=== PATIENT | male | born 1975 | race Caucasian/White ===

== ENCOUNTER 2017-01-14 12:13 | Emergency (ER) | payer SELFPAY ==
[2017-01-14 12:28] VITALS: BP 149/98; PULSE 99; RESP 20; TEMP 97.5
--- NOTE | 2017-01-14 12:46 | ED ---
General Adult HPI - General Chief complaint: Seizure Stated complaint: Ora-Seizure Time Seen by Provider: 01/14/17 12:20 Source: patient, EMS, RN notes reviewed Mode of arrival: EMS Limitations: no limitations - History of Present Illness Initial comments: This is a 41-year-old male presents emergency Department with a past medical history significant for alcoholism and he continues to drink. Patient also states he doesn't take his medications as prescribed. Patient states she's not been feeling right lately and he thinks something wrong with his brain even though he recently had a CAT scan and MRI for seizures that he had back in October or August. Patient states he went he doesn't eat right or drink right and he also donates plasma whenever they let him but lately they haven't because his heart race been high. Patient states he was supposed to follow-up with neurology but never has. When I told the patient he needed to follow-up with neurology and he needs to stop drinking he got irate is to told me he didn' t want me preaching them and wanted to leave immediately at this point time he pulled his own IV out and decided to leave - Related Data Home Medications Medication Instructions Recorded Confirmed cloNIDine HCL [Catapres] 0.1 mg PO TID PRN 05/08/16 01/14/17 traZODone HCL [Desyrel] 100 mg PO HS 05/08/16 01/14/17 Escitalopram [Lexapro] 5 mg PO DAILY 10/20/16 01/14/17 Escitalopram [Lexapro] 20 mg PO DAILY 10/20/16 01/14/17 Folic Acid 1 mg PO DAILY 10/20/16 01/14/17 Ranitidine HCl [Zantac] 150 mg PO HS 10/20/16 01/14/17 Allergies Allergy/AdvReac Type Severity Reaction Status Date / Time No Known Allergies Allergy Verified 01/14/17 12:28 Review of Systems ROS Statement: Those systems with pertinent positive or pertinent negative responses have been documented in the HPI. ROS Other: All systems not noted in ROS Statement are negative. Past Medical History Past Medical History: Seizure Disorder Additional Past Medical History / Comment(s): clavicle fracture age 6 History of Any Multi-Drug Resistant Organisms: None Reported Past Surgical History: No Surgical Hx Reported Past Psychological History: Anxiety, Depression Smoking Status: Current every day smoker Past Alcohol Use History: Daily Past Drug Use History: Marijuana General Exam - General Exam Comments Initial Comments: GENERAL: Patient is well-developed and well-nourished. Patient is nontoxic and well- hydrated and is in no acute distress EYES: The sclera were anicteric and conjunctiva were pink and moist. SKIN: Skin is clear with no lesions or rashes and otherwise unremarkable. NEUROLOGIC: Patient is alert and oriented x3. PSYCHIATRIC: Patient's unreasonable and wants to dictate his care in the emergency department. Patient would not let me complete physical exam. Limitations: no limitations Course Vital Signs 01/14/17 12:26 Temperature 97.5 F L Pulse Rate 99 Respiratory 20 Rate Blood Pressure 149/98 O2 Sat by Pulse 92 L Oximetry Disposition Clinical Impression: Feeling abnormal, Alcoholism Disposition: Left Against Medical Advice Time of Disposition: 12:46
== END 2017-01-14 12:52 | disposition left against medical advice (07) ==
LOC: EC 12:13
DX: F10.20 Alcohol dependence, uncomplicated (principal); F41.9 Anxiety disorder, unspecified; F32.9 Major depressive disorder, single episode, unspecified; F17.200 Nicotine dependence, unspecified, uncomplicated; Z79.899 Other long term (current) drug therapy; Z53.21 Procedure and treatment not carried out due to patient leaving prior to being seen by health care provider
CPT/HCPCS: 99284

== ENCOUNTER 2017-02-22 10:44 | Emergency (ER) | payer OTHER ==
[2017-02-22] MEDS ORDERED: SODIUM CHLORIDE 0.9% 500 ML IV ONE (10:59)
--- NOTE | 2017-02-22 11:07 | ED ---
Seizure HPI - General Stated Complaint: Seizure Time Seen by Provider: 02/22/17 10:50 - History of Present Illness Initial Comments: 41-year-old male patient is brought in today from [facility] after having a seizure. Patient does have a history of seizures and gets to chronic alcohol abuse. Upon arrival patient was unsure of where he was somewhat confused, but did orient quickly. Patient's fiance is present and states that she did witness the seizure today. She states the patient had a series of 2-3 seizures lasting for a total of about 5 minutes, she describes general body shaking, eyes were rolled back in his head. She has witnessed his seizures in the past and states that this was very typical for him. Patient did not fall from the chair during the seizures. He denies any loss of bowel or bladder control during the seizure. He denies nausea, vomiting, headache, dizziness, weakness, dental pain, back pain, chest pain, shortness of breath, chest patient, diarrhea, dysuria, urinary urgency, or urinary frequency. Patient denies use of anti-seizure medications. 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 - Related Data Home Medications Medication Instructions Recorded Confirmed cloNIDine HCL [Catapres] 0.1 mg PO TID PRN 05/08/16 01/14/17 traZODone HCL [Desyrel] 100 mg PO HS 05/08/16 01/14/17 Escitalopram [Lexapro] 5 mg PO DAILY 10/20/16 01/14/17 Escitalopram [Lexapro] 20 mg PO DAILY 10/20/16 01/14/17 Folic Acid 1 mg PO DAILY 10/20/16 01/14/17 Ranitidine HCl [Zantac] 150 mg PO HS 10/20/16 01/14/17 Allergies Allergy/AdvReac Type Severity Reaction Status Date / Time No Known Allergies Allergy Verified 02/22/17 11:09 Review of Systems ROS Statement: Those systems with pertinent positive or pertinent negative responses have been documented in the HPI. ROS Other: All systems not noted in ROS Statement are negative. Past Medical History Past Medical History: Seizure Disorder Additional Past Medical History / Comment(s): clavicle fracture age 6 History of Any Multi-Drug Resistant Organisms: None Reported Past Surgical History: No Surgical Hx Reported Past Psychological History: Anxiety, Depression Smoking Status: Current every day smoker Past Alcohol Use History: Daily Past Drug Use History: Marijuana General Exam General appearance: alert, in no apparent distress Eye exam: Present: normal appearance, PERRL, EOMI. Absent: scleral icterus, conjunctival injection, periorbital swelling ENT exam: Present: normal exam, normal oropharynx, mucous membranes moist Neck exam: Present: normal inspection. Absent: tenderness, meningismus, lymphadenopathy Respiratory exam: Present: normal lung sounds bilaterally. Absent: respiratory distress, wheezes, rales, rhonchi, stridor Cardiovascular Exam: Present: regular rate, normal rhythm, normal heart sounds. Absent: systolic murmur, diastolic murmur, rubs, gallop, clicks GI/Abdominal exam: Present: soft, normal bowel sounds. Absent: distended, tenderness, guarding, rebound, rigid Extremities exam: Present: normal inspection, full ROM, normal capillary refill. Absent: tenderness, pedal edema, joint swelling, calf tenderness Back exam: Present: normal inspection Neurological exam: Present: alert, oriented X3, CN II-XII intact Psychiatric exam: Present: normal affect, normal mood Skin exam: Present: warm, dry, intact, normal color. Absent: rash Course Vital Signs 02/22/17 10:51 Temperature 97.4 F L Pulse Rate 89 Respiratory 18 Rate Blood Pressure 131/86 O2 Sat by Pulse 99 Oximetry Medical Decision Making - Medical Decision Making 41-year-old male patient presented to emergency department today via EMS for evaluation after a seizure. Patient does have a history of seizures, and alessandro milan stated that the seizure was typical for him. Laboratory was performed patient was found to be intoxicated with alcohol level of 380. Patient also exhibited some mild transaminitis which is chronic for him. Patient will be discharged to return to [place] for rehabilitation. Patient given counseling regarding cessation of alcohol use. Patient instructed to return for any new, worsening, or concerning symptoms. Patient instructed to follow up with his primary care physician in one to 2 days for recheck and also to make an appointment with his neurologist for evaluation and management of his seizures. Patient verbalizes understanding and agrees this plan. - Lab Data Result diagrams: 02/22/17 11:18 02/22/17 11:18 Lab Results 02/22/17 02/22/17 02/22/17 Range/Units 11:18 11:18 11:25 WBC 5.6 (3.8-10.6) k/uL RBC 5.38 (4.30-5.90) m/uL Hgb 16.9 (13.0-17.5) gm/dL Hct 50.6 (39.0-53.0) % MCV 94.0 (80.0-100.0) fL MCH 31.4 (25.0-35.0) pg MCHC 33.4 (31.0-37.0) g/dL RDW 12.7 (11.5-15.5) % Plt Count 111 L (150-450) k/uL Neutrophils % 52 % Lymphocytes % 36 % Monocytes % 5 % Eosinophils % 3 % Basophils % 1 % Neutrophils # 2.9 (1.3-7.7) k/uL Lymphocytes # 2.0 (1.0-4.8) k/uL Monocytes # 0.3 (0-1.0) k/uL Eosinophils # 0.2 (0-0.7) k/uL Basophils # 0.0 (0-0.2) k/uL Sodium 147 H (137-145) mmol/L Potassium 4.3 (3.5-5.1) mmol/L Chloride 106 (98-107) mmol/L Carbon Dioxide 24 (22-30) mmol/L Anion Gap 17 mmol/L BUN 7 L (9-20) mg/dL Creatinine 0.59 L (0.66-1.25) mg/dL Est GFR (MDRD) Af Amer >60 (>60 ml/min/1.73 sqM) Est GFR (MDRD) Non-Af >60 (>60 ml/min/1.73 sqM) Glucose 96 (74-99) mg/dL Calcium 9.3 (8.4-10.2) mg/dL Total Bilirubin 0.9 (0.2-1.3) mg/dL AST 133 H (17-59) U/L ALT 97 H (21-72) U/L Alkaline Phosphatase 72 (38-126) U/L Total Protein 8.0 (6.3-8.2) g/dL Albumin 5.0 (3.5-5.0) g/dL Urine Color Light Yellow Urine Appearance Clear (Clear) Urine pH 6.0 (5.0-8.0) Ur Specific [place] 1.002 (1.001-1.035) Urine Protein Negative (Negative) Urine Glucose (UA) Negative (Negative) Urine Ketones Negative (Negative) Urine Blood Negative (Negative) Urine Nitrite Negative (Negative) Urine Bilirubin Negative (Negative) Urine Urobilinogen <2.0 (<2.0) mg/dL Ur Leukocyte Esterase Negative (Negative) Urine Opiates Screen Not Detected (NotDetected) Ur Oxycodone Screen Not Detected (NotDetected) Urine Methadone Screen Not Detected (NotDetected) Ur Propoxyphene Screen Not Detected (NotDetected) Ur Barbiturates Screen Not Detected (NotDetected) U Tricyclic Antidepress Not Detected (NotDetected) Ur Phencyclidine Scrn Not Detected (NotDetected) Ur Amphetamines Screen Not Detected (NotDetected) U Methamphetamines Scrn Not Detected (NotDetected) U Benzodiazepines Scrn Not Detected (NotDetected) Urine Cocaine Screen Not Detected (NotDetected) U Marijuana (THC) Screen Not Detected (NotDetected) Serum Alcohol 380 mg/dL - EKG Data -: EKG Interpreted by Me 02/22/17 11:55 EKG obtained at 1150 reveals normal sinus rhythm with a ventricular rate of 74, MS interval 1:30, QRS duration 94, QT 394, QTC 437. No ST elevation or depression noted. Disposition Clinical Impression: Seizure, Alcohol intoxication Disposition: HOME SELF-CARE Condition: Stable Instructions: Recurrent Seizures in Adults (ED), Alcohol Intoxication (ED) Additional Instructions: You are able to return to [place] for rehabilitation. Follow-up with primary care provider in one to 2 days for recheck. Make appointment with neurologist. Return for any new, worsening, or concerning symptoms. Referrals: Marilou Graves MD [Primary Care Provider] - 1-2 days Time of Disposition: 12:14
[2017-02-22 11:09] VITALS: RESP 18
[2017-02-22 11:29] LABS: Basophils % (A) 1 %; CH 31.7; CHCM 33.8; Eosinophils # (A) 0.2 k/uL (0-0.7); Eosinophils % (A) 3 %; HCT 50.6 % (39.0-53.0); HDW 2.21; HGB 16.9 gm/dL (13.0-17.5); Luc # (Auto) 0.14; Luc % (Auto) 3; Lymphocytes % (A) 36 %; MCH 31.4 pg (25.0-35.0); MCHC 33.4 g/dL (31.0-37.0); Mean Platelet Volume 6.7; Monocytes # (A) 0.3 k/uL (0-1.0); Monocytes % (A) 5 %; Neutrophils # (A) 2.9 k/uL (1.3-7.7); Neutrophils % (A) 52 %; RBC 5.38 m/uL (4.30-5.90); RDW 12.7 % (11.5-15.5); WBC 5.6 k/uL (3.8-10.6); WBC (Perox) 5.65
[2017-02-22 11:34] LABS: Appearance,Urine Clear (Clear); Bilirubin,Urine Negative (Negative); Glucose,Urine (UA) Negative (Negative); Ketones,Urine Negative (Negative); Leukocyte Esterase,Urine Negative (Negative); Nitrite,Urine Negative (Negative); Protein,Urine Negative (Negative); Specific Gravity,Urine 1.002 (1.001-1.035); UA Billing (MACRO vs. MICRO) CHEM; Urobilinogen,Urine <2.0 mg/dL (<2.0)
[2017-02-22 11:51] LABS: Anion Gap 17 mmol/L; Calcium 9.3 mg/dL (8.4-10.2); Carbon Dioxide 24 mmol/L (22-30); Chloride 106 mmol/L (98-107); Glucose 96 mg/dL (74-99); Non-African American GFR(MDRD) >60 (>60 ml/min/1.73 sqM); Sodium 147 mmol/L (137-145); Total Bilirubin 0.9 mg/dL (0.2-1.3)
[2017-02-22 12:06] LABS: Alcohol 380 mg/dL
[2017-02-22 12:07] LABS: ALT 97 U/L (21-72); AST 133 U/L (17-59); Alkaline Phosphatase 72 U/L (38-126); Blood Urea Nitrogen 7 mg/dL (9-20); Potassium 4.3 mmol/L (3.5-5.1)
[2017-02-22 12:28] VITALS: BP 107/66; PULSE 84; TEMP 98.3
== END 2017-02-22 12:25 | disposition home or self-care (01) ==
LOC: EC 10:44
DX: G40.909 Epilepsy, unspecified, not intractable, without status epilepticus (principal); F10.129 Alcohol abuse with intoxication, unspecified; F32.9 Major depressive disorder, single episode, unspecified; F41.9 Anxiety disorder, unspecified; F17.200 Nicotine dependence, unspecified, uncomplicated; Z79.899 Other long term (current) drug therapy
CPT/HCPCS: 36415; 80053; 80306; 80320; 81003; 85025; 93005; 96360; 99284

== ENCOUNTER → 2017-02-27 | Outpatient (CLI) | payer OTHER ==
--- NOTE | 2017-02-27 17:00 | CT ---
EXAMINATION TYPE: CT brain wo con DATE OF EXAM: 02/27/2017 4:54 PM COMPARISON: 10/20/2016 HISTORY: History of cyst of middle cranial fossa and increased number of seizures. CT DLP: 1017.[address] of the brain was performed. The ventricles, basal cisterns and sulci overlying the cerebral convexities demonstrate a normal appe arance. There is no evidence for intracranial hemorrhage or sulcal effacement. No mass effects are seen. Osseous calvarium is intact. If symptoms persist consider MRI as clinically warranted. IMPRESSION: 1. No acute intracranial process is seen at this time.
== END | disposition home or self-care (01) ==
LOC: RADCTMAIN 16:33
PROVIDERS: ATTEND Family Medicine
DX: G93.0 Cerebral cysts (principal); R56.9 Unspecified convulsions
CPT/HCPCS: 70450

== ENCOUNTER 2017-03-13 17:00 | Observation (INO) | payer OTHER ==
--- NOTE | 2017-03-13 17:21 | ED ---
General Adult HPI - General Source: patient, RN notes reviewed Mode of arrival: ambulatory Limitations: no limitations <Jun Main - Last Filed: 03/13/17 17:28> <Benjy Saeed - Last Filed: 03/13/17 18:29> - General Chief complaint: Psychiatric Symptoms Stated complaint: Suicidal Time Seen by Provider: 03/13/17 17:09 - History of Present Illness Initial comments: Patient 41-year-old male who presents emergency room today with chief complaint of suicidal ideation. Patient does admit that he's been having thoughts of hurting himself. He does admit to being alcoholic. He states is a daily drinker. He does admit that his been having increased thoughts of hurting himself his had a difficult time getting into a rehab program. States feels like she's been having the runaround. Patient does admit that his had settled also past. Does admit that he currently does not smoke counselor. She is been some the months since he has seen anybody. Patient denies any homicidal thoughts or plans. Denies any auditory or visual hallucinations. Denies any other physical complaints. Patient does admit to being daily drinker at this time states does not want to go through alcohol withdrawals. Patient denies any recent fever, chills, shortness of breath, chest pain, back pain, abdominal pain , nausea or vomiting, numbness or tingling, dysuria or hematuria, constipation or diarrhea, headaches or visual changes, or any other complaints. (Jun Main) - Related Data Home Medications Medication Instructions Recorded Confirmed cloNIDine HCL [Catapres] 0.1 mg PO TID PRN 05/08/16 03/13/17 Escitalopram [Lexapro] 15 mg PO DAILY 10/20/16 03/13/17 Folic Acid 1 mg PO DAILY 10/20/16 03/13/17 Ranitidine HCl [Zantac] 300 mg PO HS PRN 03/13/17 03/13/17 busPIRone HCl [Buspar] 5 mg PO BID 03/13/17 03/13/17 levETIRAcetam [Keppra] 500 mg PO Q12HR 03/13/17 03/13/17 traZODone HCL 150 mg PO HS 03/13/17 03/13/17 Allergies Allergy/AdvReac Type Severity Reaction Status Date / Time No Known Allergies Allergy Verified 03/13/17 17:25 Review of Systems ROS Other: All systems not noted in ROS Statement are negative. <Jose DavidJun - Last Filed: 03/13/17 17:28> ROS Other: All systems not noted in ROS Statement are negative. <Benjy Saeed - Last Filed: 03/13/17 18:29> ROS Statement: Those systems with pertinent positive or pertinent negative responses have been documented in the HPI. Past Medical History Past Medical History: Seizure Disorder Additional Past Medical History / Comment(s): clavicle fracture age 6 l knee injury History of Any Multi-Drug Resistant Organisms: None Reported Past Surgical History: No Surgical Hx Reported Past Psychological History: Anxiety, Depression Smoking Status: Current every day smoker Past Alcohol Use History: Abuse, Daily, Heavy Past Drug Use History: Marijuana <Jose DavidJun - Last Filed: 03/13/17 17:28> General Exam Limitations: no limitations <Jose DavidJun - Last Filed: 03/13/17 17:28> <Benjy Saeed - Last Filed: 03/13/17 18:29> - General Exam Comments Initial Comments: General: The patient is awake and alert, in no distress, and does not appear acutely ill. Eye: Pupils are equal, round and reactive to light, extra-ocular movements are intact. No nystagmus. There is normal conjunctiva bilaterally. No signs of icterus. Ears, nose, mouth and throat: There are moist mucous membranes and no oral lesions. Neck: The neck is supple, there is no tenderness or JVD. Cardiovascular: There is a regular rate and rhythm. No murmur, rub or gallop is appreciated. Respiratory: Lungs are clear to auscultation, respirations are non-labored, breath sounds are equal. No wheezes, stridor, rales, or rhonchi. Gastrointestinal: Soft, non-distended, non-tender abdomen without masses or organomegaly noted. There is no rebound or guarding present. No CVA tenderness. Bowel sounds are unremarkable. Musculoskeletal: Normal ROM, no tenderness. Strength 5/5. Sensation intact. Pulses equal bilaterally 2+. Neurological: A&O x 3. CN II-XII intact, There are no obvious motor or sensory deficits. Coordination appears grossly intact. Speech is normal. Skin: Skin is warm and dry and no rashes or lesions are noted. Psychiatric: Cooperative, appropriate mood & affect, normal judgment. (Jun Main) Course <Jun Main - Last Filed: 03/13/17 17:28> <Benjy Saeed - Last Filed: 03/13/17 18:29> Vital Signs 03/13/17 17:04 Temperature 97.8 F Pulse Rate 99 Respiratory 18 Rate Blood Pressure 134/92 O2 Sat by Pulse 98 Oximetry - Reevaluation(s) Reevaluation #1: 03/13/17 18:28 Patient had witnessed generalized seizure activity lasting up to 1 minute. Family is present and states patient has had seizures approximately twice weekly recently. Patient is on Keppra. Patient has had seizures for years. ( Benjy Saeed) Medical Decision Making <Jun Main - Last Filed: 03/13/17 17:28> - Lab Data Result diagrams: 03/13/17 17:34 03/13/17 17:34 <Benjy Saeed - Last Filed: 03/13/17 18:29> - Medical Decision Making Patient will be admitted to hospitalist for alcoholic draw and consult psych for suicidal ideation. Patient's been started on CIWA scale here in the emergency room. (Jun Main) - Lab Data Lab Results 03/13/17 03/13/17 03/13/17 Range/Units 17:25 17:34 17:34 WBC 4.6 (3.8-10.6) k/uL RBC 5.05 (4.30-5.90) m/uL Hgb 16.1 (13.0-17.5) gm/dL Hct 46.7 (39.0-53.0) % MCV 92.5 (80.0-100.0) fL MCH 31.9 (25.0-35.0) pg MCHC 34.4 (31.0-37.0) g/dL RDW 12.5 (11.5-15.5) % Plt Count 93 L (150-450) k/uL Neutrophils % 51 % Lymphocytes % 36 % Monocytes % 7 % Eosinophils % 3 % Basophils % 1 % Neutrophils # 2.3 (1.3-7.7) k/uL Lymphocytes # 1.6 (1.0-4.8) k/uL Monocytes # 0.3 (0-1.0) k/uL Eosinophils # 0.2 (0-0.7) k/uL Basophils # 0.0 (0-0.2) k/uL Sodium 146 H (137-145) mmol/L Potassium 3.8 (3.5-5.1) mmol/L Chloride 103 (98-107) mmol/L Carbon Dioxide 28 (22-30) mmol/L Anion Gap 15 mmol/L BUN 6 L (9-20) mg/dL Creatinine 0.67 (0.66-1.25) mg/dL Est GFR (MDRD) Af Amer >60 (>60 ml/min/1.73 sqM) Est GFR (MDRD) Non-Af >60 (>60 ml/min/1.73 sqM) Glucose 141 H (74-99) mg/dL Calcium 9.3 (8.4-10.2) mg/dL Total Bilirubin 0.9 (0.2-1.3) mg/dL AST 270 H (17-59) U/L ALT 215 H (21-72) U/L Alkaline Phosphatase 56 (38-126) U/L Total Protein 8.8 H (6.3-8.2) g/dL Albumin 5.2 H (3.5-5.0) g/dL Urine Opiates Screen Not Detected (NotDetected) Ur Oxycodone Screen Not Detected (NotDetected) Urine Methadone Screen Not Detected (NotDetected) Ur Propoxyphene Screen Not Detected (NotDetected) Ur Barbiturates Screen Not Detected (NotDetected) U Tricyclic Antidepress Not Detected (NotDetected) Ur Phencyclidine Scrn Not Detected (NotDetected) Ur Amphetamines Screen Not Detected (NotDetected) U Methamphetamines Scrn Not Detected (NotDetected) U Benzodiazepines Scrn Not Detected (NotDetected) Urine Cocaine Screen Not Detected (NotDetected) U Marijuana (THC) Screen Not Detected (NotDetected) Disposition Time of Disposition: 17:30 <Jun Main - Last Filed: 03/13/17 17:28> <Benjy Saeed - Last Filed: 03/13/17 18:29> Clinical Impression: Alcohol intoxication, Suicidal ideation Disposition: ADMITTED IP TO THIS HOSP Condition: Stable Referrals: Marilou Graves MD [Primary Care Provider] - 1-2 days
[2017-03-13] MEDS ORDERED: LORazepam 2 MG/ML SYRINGE IV PRN (17:23)
[2017-03-13] MEDS ORDERED: THIAMINE 100 MG/ML 2 ML VIAL IM STA (17:23)
[2017-03-13] MEDS ORDERED: NALOXONE 0.4 MG/ML 1 ML VIAL IV PRN (17:30)
[2017-03-13] MEDS ORDERED: ONDANSETRON 4 MG/2 ML VIAL IVP PRN (17:30)
[2017-03-13] MEDS ORDERED: SODIUM CHLORIDE 0.9% 1,000 ML IV ONE (17:30)
[2017-03-13] MEDS ORDERED: ACETAMINOPHEN TAB 325 MG TAB PO PRN (17:30)
[2017-03-13 17:54] LABS: Basophils % (A) 1 %; CH 32.1; CHCM 34.8; Eosinophils # (A) 0.2 k/uL (0-0.7); Eosinophils % (A) 3 %; HCT 46.7 % (39.0-53.0); HDW 2.35; HGB 16.1 gm/dL (13.0-17.5); Luc # (Auto) 0.13; Luc % (Auto) 3; Lymphocytes # (A) 1.6 k/uL (1.0-4.8); Lymphocytes % (A) 36 %; MCH 31.9 pg (25.0-35.0); MCHC 34.4 g/dL (31.0-37.0); MCV 92.5 fL (80.0-100.0); Mean Platelet Volume 6.7; Monocytes # (A) 0.3 k/uL (0-1.0); Monocytes % (A) 7 %; Neutrophils # (A) 2.3 k/uL (1.3-7.7); Neutrophils % (A) 51 %; RBC 5.05 m/uL (4.30-5.90); RDW 12.5 % (11.5-15.5); WBC 4.6 k/uL (3.8-10.6); WBC (Perox) 4.52
[2017-03-13 18:04] LABS: ALT 215 U/L (21-72); AST 270 U/L (17-59); Alkaline Phosphatase 56 U/L (38-126); Anion Gap 15 mmol/L; Blood Urea Nitrogen 6 mg/dL (9-20); Calcium 9.3 mg/dL (8.4-10.2); Carbon Dioxide 28 mmol/L (22-30); Chloride 103 mmol/L (98-107); Glucose 141 mg/dL (74-99); Non-African American GFR(MDRD) >60 (>60 ml/min/1.73 sqM); Potassium 3.8 mmol/L (3.5-5.1); Sodium 146 mmol/L (137-145); Total Bilirubin 0.9 mg/dL (0.2-1.3); Total Protein 8.8 g/dL (6.3-8.2)
[2017-03-13] MEDS: LORazepam 2 MG/ML SYRINGE IV PRN ×3 (18:28→22:47)
[2017-03-14 07:53] VITALS: RESP 18
[2017-03-14] MEDS: LORazepam 2 MG/ML SYRINGE IV PRN ×3 (09:40→13:33)
[2017-03-14 09:53] VITALS: BMI 22.6
[2017-03-14] MEDS: THIAMINE 100 MG TAB PO SCH ×2 (11:26→17:03)
[2017-03-14 16:14] VITALS: BP 118/80; PULSE 74; TEMP 98.2
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
== END 2017-03-14 17:30 | disposition home or self-care (01) ==
LOC: EC 17:00 → 3OBS 17:31
PROVIDERS: ADMIT Hospitalist; ATTEND Hospitalist
DX: K70.10 Alcoholic hepatitis without ascites (principal); F10.129 Alcohol abuse with intoxication, unspecified; G40.909 Epilepsy, unspecified, not intractable, without status epilepticus; F32.9 Major depressive disorder, single episode, unspecified; F90.9 Attention-deficit hyperactivity disorder, unspecified type; F19.90 Other psychoactive substance use, unspecified, uncomplicated; F41.9 Anxiety disorder, unspecified; F42.9 Obsessive-compulsive disorder, unspecified; K21.9 Gastro-esophageal reflux disease without esophagitis; R45.851 Suicidal ideations; F17.200 Nicotine dependence, unspecified, uncomplicated; F84.0 Autistic disorder
CPT/HCPCS: 82075; 36415; 80053; 80177; 85025; 80306; 99285; 96374; 96375; 96372; G0378 ×2; J2060 ×2; J3411; J2405; 96376

== ENCOUNTER 2017-06-02 11:57 | Observation (INO) | payer OTHER ==
[2017-06-02] MEDS ORDERED: PANTOPRAZOLE 40 MG/10 ML VIAL IVP STA (12:29)
[2017-06-02 12:52] LABS: Basophils % (A) 0 %; CH 32.3; CHCM 34.8; Eosinophils # (A) 0.1 k/uL (0-0.7); Eosinophils % (A) 2 %; HCT 52.2 % (39.0-53.0); HDW 2.28; HGB 17.5 gm/dL (13.0-17.5); Luc # (Auto) 0.09; Luc % (Auto) 2; Lymphocytes # (A) 1.8 k/uL (1.0-4.8); Lymphocytes % (A) 37 %; MCH 31.1 pg (25.0-35.0); MCHC 33.4 g/dL (31.0-37.0); MCV 93.1 fL (80.0-100.0); Mean Platelet Volume 6.9; Monocytes # (A) 0.3 k/uL (0-1.0); Monocytes % (A) 7 %; Neutrophils # (A) 2.6 k/uL (1.3-7.7); Neutrophils % (A) 52 %; RBC 5.61 m/uL (4.30-5.90); RDW 12.8 % (11.5-15.5); WBC 4.9 k/uL (3.8-10.6); WBC (Perox) 4.67
[2017-06-02 12:53] LABS: Appearance,Urine Clear (Clear); Bilirubin,Urine Negative (Negative); Glucose,Urine (UA) Negative (Negative); Ketones,Urine Negative (Negative); Leukocyte Esterase,Urine Negative (Negative); Nitrite,Urine Negative (Negative); Protein,Urine Negative (Negative); Specific Gravity,Urine 1.002 (1.001-1.035); UA Billing (MACRO vs. MICRO) CHEM; Urobilinogen,Urine <2.0 mg/dL (<2.0)
[2017-06-02 13:06] LABS: ALT 50 U/L (21-72); AST 74 U/L (17-59); Alkaline Phosphatase 50 U/L (38-126); Anion Gap 16 mmol/L; Blood Urea Nitrogen 7 mg/dL (9-20); Calcium 8.9 mg/dL (8.4-10.2); Carbon Dioxide 25 mmol/L (22-30); Chloride 106 mmol/L (98-107); Glucose 125 mg/dL (74-99); Non-African American GFR(MDRD) >60 (>60 ml/min/1.73 sqM); Potassium 3.9 mmol/L (3.5-5.1); Sodium 147 mmol/L (137-145); Total Bilirubin 0.7 mg/dL (0.2-1.3); Total Protein 7.1 g/dL (6.3-8.2)
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
[2017-06-02 13:19] LABS: Alcohol 347 mg/dL
--- NOTE | 2017-06-02 13:30 | XR ---
EXAMINATION TYPE: XR hand complete RT DATE OF EXAM: 06/02/2017 COMPARISON: NONE HISTORY: Pain, laceration fifth digit TECHNIQUE: 3 views right hand FINDINGS: No acute fractures are evident. Patient's reported fifth digit laceration is not identified . Soft tissues appear normal. No radiopaque foreign body is evident. Follow-up exam can be performed 7-10 days from acute trauma for continued pain. IMPRESSION: 1. Normal three-view right hand
[2017-06-02] MEDS ORDERED: NALOXONE 0.4 MG/ML 1 ML VIAL IV PRN (15:09)
[2017-06-02] MEDS ORDERED: LORazepam 2 MG/ML SYRINGE IV PRN ×3 (15:10)
[2017-06-02] MEDS ORDERED: SODIUM CHLORIDE 0.9% 1,000 ML with MVI, ADULT NO.4 WITH VIT K 10 ML, THIAMINE 100 MG, F... IV ONE ×4 (16:00)
[2017-06-02] MEDS ORDERED: THIAMINE 100 MG TAB PO SCH (17:00)
[2017-06-02] MEDS ORDERED: CEPHALEXIN 500 MG CAP PO SCH (18:00)
[2017-06-02 18:01] VITALS: BP 125/73; PULSE 78; RESP 16; TEMP 97.2
[2017-06-02] MEDS ORDERED: PANTOPRAZOLE 40 MG/10 ML VIAL IVP SCH (21:00)
== END 2017-06-02 17:55 | disposition left against medical advice (07) ==
LOC: EC 11:57 → 4MS4W 15:03
PROVIDERS: ADMIT Hospitalist; ATTEND Hospitalist
DX: S61.411A Laceration without foreign body of right hand, initial encounter (principal); Y04.2XXA Assault by strike against or bumped into by another person, initial encounter; M54.2 Cervicalgia; Z79.899 Other long term (current) drug therapy; Z79.82 Long term (current) use of aspirin; K21.9 Gastro-esophageal reflux disease without esophagitis; G40.909 Epilepsy, unspecified, not intractable, without status epilepticus; F90.9 Attention-deficit hyperactivity disorder, unspecified type; F41.9 Anxiety disorder, unspecified; F32.9 Major depressive disorder, single episode, unspecified; F17.200 Nicotine dependence, unspecified, uncomplicated; K29.70 Gastritis, unspecified, without bleeding; F10.129 Alcohol abuse with intoxication, unspecified; H53.8 Other visual disturbances
CPT/HCPCS: 96374; 99285; 36415; 80053; 83690; 85025; 81003; 80306; 80320; 73130; 72125; 70450; G0378; J3411; C9113

== ENCOUNTER 2018-03-26 22:09 | Emergency (ER) | payer OTHER ==
[2018-03-26 22:41] VITALS: BP 104/64; PULSE 97; RESP 14; TEMP 97.8
[2018-03-26] MEDS ORDERED: SODIUM CHLORIDE 0.9% 1,000 ML IV STA (23:07)
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
== END 2018-03-26 23:39 | disposition left against medical advice (07) ==
LOC: EC 22:09
DX: G40.909 Epilepsy, unspecified, not intractable, without status epilepticus (principal); F90.9 Attention-deficit hyperactivity disorder, unspecified type; F84.0 Autistic disorder; F41.9 Anxiety disorder, unspecified; F32.9 Major depressive disorder, single episode, unspecified; F10.20 Alcohol dependence, uncomplicated; F17.200 Nicotine dependence, unspecified, uncomplicated; Z79.899 Other long term (current) drug therapy; Z53.29 Procedure and treatment not carried out because of patient's decision for other reasons
CPT/HCPCS: 99284

== ENCOUNTER 2019-07-30 12:57 | Emergency (ER) | payer OTHER ==
[2019-07-30 13:03] VITALS: TEMP 97.8
[2019-07-30] MEDS ORDERED: ESCITALOPRAM 5 MG TAB PO STA (13:44)
[2019-07-30] MEDS ORDERED: ONDANSETRON 4 MG/2 ML VIAL IVP STA (13:44)
[2019-07-30] MEDS ORDERED: DIAZEPAM 5 MG/ML 2 ML INJ IVP STA (13:44)
[2019-07-30] MEDS ORDERED: busPIRone HCl 10 MG TAB PO STA ×2 (13:44)
[2019-07-30] MEDS ORDERED: SODIUM CHLORIDE 0.9% 1,000 ML IV STA (13:44)
[2019-07-30] MEDS ORDERED: ESCITALOPRAM 10 MG TAB PO STA (13:44)
[2019-07-30] MEDS ORDERED: levETIRAcetam IV 1,000 MG in SALINE 1 100ML.BAG IVPB STA (13:46)
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
[2019-07-30] MEDS ORDERED: traZODone HCL 50 MG TAB PO ONE (14:00)
[2019-07-30 14:27] LABS: Basophils % (A) 1 %; Eosinophils # (A) 0.1 k/uL (0-0.7); Eosinophils % (A) 3 %; HCT 47.1 % (39.0-53.0); HGB 16.1 gm/dL (13.0-17.5); Lymphocytes # (A) 1.3 k/uL (1.0-4.8); Lymphocytes % (A) 29 %; MCHC 34.1 g/dL (31.0-37.0); MCV 90.9 fL (80.0-100.0); Monocytes # (A) 0.4 k/uL (0-1.0); Monocytes % (A) 8 %; Neutrophils # (A) 2.7 k/uL (1.3-7.7); Neutrophils % (A) 58 %; Platelet Count 105 k/uL (150-450); RBC 5.19 m/uL (4.30-5.90); WBC 4.6 k/uL (3.8-10.6)
[2019-07-30 14:40] LABS: ALT 120 U/L (21-72); AST 201 U/L (17-59); African American GFR (CKD) >90 (>60 ml/min/1.73 sqM); Albumin 4.7 g/dL (3.5-5.0); Alkaline Phosphatase 87 U/L (38-126); Anion Gap 14 mmol/L; Blood Urea Nitrogen 5 mg/dL (9-20); Calcium 8.9 mg/dL (8.4-10.2); Carbon Dioxide 24 mmol/L (22-30); Chloride 104 mmol/L (98-107); Glucose 102 mg/dL (74-99); Magnesium 1.6 mg/dL (1.6-2.3); Potassium 3.8 mmol/L (3.5-5.1); Sodium 142 mmol/L (137-145); Total Bilirubin 0.6 mg/dL (0.2-1.3); Total Protein 7.9 g/dL (6.3-8.2)
[2019-07-30 14:53] LABS: Alcohol 285 mg/dL
[2019-07-30 15:08] VITALS: BP 131/87; PULSE 82; RESP 14
== END 2019-07-30 15:08 | disposition home or self-care (01) ==
LOC: EC 12:57
DX: F10.129 Alcohol abuse with intoxication, unspecified (principal); G40.909 Epilepsy, unspecified, not intractable, without status epilepticus; F19.939 Other psychoactive substance use, unspecified with withdrawal, unspecified; F17.200 Nicotine dependence, unspecified, uncomplicated; Z76.0 Encounter for issue of repeat prescription
CPT/HCPCS: 36415; 93005; 80053; 83735; 84100; 85025; 99284; 96374; 96375; 96361; G0480; J3360; J2405; J1953; 80320

== ENCOUNTER 2020-01-13 17:28 | Emergency (ER) | payer OTHER ==
[2020-01-13 17:35] VITALS: BP 128/88; PULSE 100; RESP 20; TEMP 98.2
[2020-01-13] MEDS ORDERED: SODIUM CHLORIDE 0.9% 1,000 ML IV STA (18:08)
--- NOTE | 2020-01-13 18:15 | ED ---
General Adult HPI - General Chief complaint: Upper Respiratory Infection Stated complaint: Cough Time Seen by Provider: 01/13/20 17:40 Source: patient Mode of arrival: ambulatory Limitations: no limitations - History of Present Illness Initial comments: Dictation was produced using [employer] dictation software. please excuse any grammatical, word or spelling errors. Chief Complaint: 44-year-old male past medical history of seizure disorder presents with cough History of Present Illness: 44-year-old male he states that he has been feeling sick for approximately 3 weeks. He states that his symptoms began with runny nose. He thought it was a cold. His symptoms got improved to 4 days and then return with a vengeance. He was prompted by his family members come to the emergency department for medical evaluation. His concern that he has pneumonia according to family member. Patient denies any fever however complains of chills. States that he is coughing is productive of white and clear sputum. Reports she's had multiple episodes of posttussive emesis. The ROS documented in this emergency department record has been reviewed and confirmed by me. Those systems with pertinent positive or negative responses have been documented in the HPI. All other systems are other negative and/or noncontributory. PHYSICAL EXAM: General Impression: Alert and oriented x3, coughing HEENT: Normocephalic atraumatic, extra-ocular movements intact, pupils equal and reactive to light bilaterally, mucous membranes moist. Cardiovascular: Heart regular rate and rhythm, S1&S2 audible, no murmurs, rubs or gallops Chest: Lungs clear to auscultation bilaterally, no rhonchi, no wheeze, no rales Abdomen: Bowel sounds present, abdomen soft, non-tender, non-distended, no organomegaly Musculoskeletal: Pulses present and equal in all extremities, no peripheral edema Motor: no focal deficits noted Neurological: CN II-XII grossly intact, no focal motor or sensory deficits noted Skin: Intact with no visualized rashes Psych: Normal affect and mood ED course: 44-year-old male presents with respiratory symptoms. vital signs upon arrival are within acceptable limits. Laboratory evaluation obtained. CBC, metabolic panel is unremarkable. Influenza test negative. Chest x-ray is nonacute. Patient observed at bedside. Discussed with patient that his symptoms are likely secondary to viral URI. He is told that his symptoms are likely self-limited. Given that patient had 3 weeks of symptoms patient is given prescription for Zithromax pack. Advised to follow up with our care physician upon discharge. - Related Data Previous Rx's Medication Instructions Recorded Escitalopram [Lexapro] 20 mg PO DAILY #30 tab 07/30/19 busPIRone HCL [Buspar] 7.5 mg PO BID #60 tab 07/30/19 levETIRAcetam [Keppra] 500 mg PO BID #60 tab 07/30/19 traZODone HCL [Desyrel] 100 mg PO HS #30 tab 07/30/19 Azithromycin [Zithromax Z-pack] 0 mg PO DIRECTED #6 tab 01/13/20 Allergies Allergy/AdvReac Type Severity Reaction Status Date / Time No Known Allergies Allergy Verified 01/13/20 17:32 Review of Systems ROS Statement: Those systems with pertinent positive or pertinent negative responses have been documented in the HPI. ROS Other: All systems not noted in ROS Statement are negative. Past Medical History Past Medical History: GERD/Reflux, Memory Impairment, Seizure Disorder Additional Past Medical History / Comment(s): RT clavicle fracture age 6 AND AGAIN AT AGE 7 OR 8, l knee injury-TORN MENISCUS, PALPATATIONS, "I HAVE PASSED BLOOD RECTALLY BUT NEVER HAD IT CHECKED OUT", PT STATED HE WAS DX W/AUTI SM,OCD,ADD."donates plasma twice a week" History of Any Multi-Drug Resistant Organisms: None Reported Past Surgical History: No Surgical Hx Reported Additional Past Surgical History / Comment(s): had all teeth extracted Past Anesthesia/Blood Transfusion Reactions: Motion Sickness, Postoperative Naus ea & Vomiting (PONV) Past Psychological History: ADD/ADHD, Anxiety, Depression Smoking Status: Current every day smoker Past Alcohol Use History: Daily, Heavy Past Drug Use History: None Reported - Past Family History Father History Unknown: Yes Mother History Unknown: Yes General Exam Limitations: no limitations Course Vital Signs 01/13/20 17:31 Temperature 98.2 F Pulse Rate 100 Respiratory 20 Rate Blood Pressure 128/88 O2 Sat by Pulse 96 Oximetry Medical Decision Making - Lab Data Result diagrams: 01/13/20 18:38 01/13/20 18:38 Lab Results 01/13/20 01/13/20 01/13/20 Range/Units 18:13 18:38 18:38 WBC 5.7 (3.8-10.6) k/uL RBC 5.90 (4.30-5.90) m/uL Hgb 18.3 H (13.0-17.5) gm/dL Hct 54.9 H (39.0-53.0) % MCV 93.1 (80.0-100.0) fL MCH 31.1 (25.0-35.0) pg MCHC 33.4 (31.0-37.0) g/dL RDW 12.6 (11.5-15.5) % Plt Count 202 (150-450) k/uL Neutrophils % 57 % Lymphocytes % 33 % Monocytes % 6 % Eosinophils % 1 % Basophils % 1 % Neutrophils # 3.2 (1.3-7.7) k/uL Lymphocytes # 1.9 (1.0-4.8) k/uL Monocytes # 0.3 (0-1.0) k/uL Eosinophils # 0.1 (0-0.7) k/uL Basophils # 0.1 (0-0.2) k/uL Sodium 141 (137-145) mmol/L Potassium 4.1 (3.5-5.1) mmol/L Chloride 107 (98-107) mmol/L Carbon Dioxide 24 (22-30) mmol/L Anion Gap 10 mmol/L BUN 2 L (9-20) mg/dL Creatinine 0.52 L (0.66-1.25) mg/dL Est GFR (CKD-EPI)AfAm >90 (>60 ml/min/1.73 sqM) Est GFR (CKD-EPI)NonAf >90 (>60 ml/min/1.73 sqM) Glucose 94 (74-99) mg/dL Calcium 8.7 (8.4-10.2) mg/dL Influenza Type A RNA Not Detected (Not Detectd) Influenza Type B (PCR) Not Detected (Not Detectd) Disposition Clinical Impression: Cough Disposition: HOME SELF-CARE Condition: Good Instructions (If sedation given, give patient instructions): Upper Respiratory Infection (ED) Prescriptions: Azithromycin [Zithromax Z-pack] 0 mg PO DIRECTED #6 tab Is patient prescribed a controlled substance at d/c from ED?: No Referrals: Marilou Graves MD [Primary Care Provider] - 1-2 days Time of Disposition: 19:57
--- NOTE | 2020-01-13 18:30 | XR ---
EXAMINATION: XR chest 2V DATE AND TIME: 01/13/2020 6:05 PM CLINICAL INDICATION: PHH; cough TECHNIQUE: Departmental protocol COMPARISON: None FINDINGS: The lungs are clear. The pleural spaces are negative. The cardiac silhouette is not enlarged. The remainder of the mediastinal silhouette is unremarkable. The skeletal structures and soft tissues are negative for acute findings. IMPRESSION: No definite acute radiographic process.
[2020-01-13 19:04] LABS: African American GFR (CKD) >90 (>60 ml/min/1.73 sqM); Anion Gap 10 mmol/L; Blood Urea Nitrogen 2 mg/dL (9-20); Calcium 8.7 mg/dL (8.4-10.2); Carbon Dioxide 24 mmol/L (22-30); Chloride 107 mmol/L (98-107); Glucose 94 mg/dL (74-99); Non-African American GFR(CKD) >90 (>60 ml/min/1.73 sqM); Sodium 141 mmol/L (137-145)
[2020-01-13 19:05] LABS: Potassium 4.1 mmol/L (3.5-5.1)
[2020-01-13 19:15] LABS: Basophils # (A) 0.1 k/uL (0-0.2); Basophils % (A) 1 %; Eosinophils # (A) 0.1 k/uL (0-0.7); Eosinophils % (A) 1 %; HCT 54.9 % (39.0-53.0); HGB 18.3 gm/dL (13.0-17.5); Lymphocytes # (A) 1.9 k/uL (1.0-4.8); Lymphocytes % (A) 33 %; MCH 31.1 pg (25.0-35.0); MCHC 33.4 g/dL (31.0-37.0); MCV 93.1 fL (80.0-100.0); Mean Platelet Volume 7.4; Monocytes # (A) 0.3 k/uL (0-1.0); Monocytes % (A) 6 %; Neutrophils # (A) 3.2 k/uL (1.3-7.7); Neutrophils % (A) 57 %; Platelet Count 202 k/uL (150-450); RDW 12.6 % (11.5-15.5); WBC 5.7 k/uL (3.8-10.6)
== END 2020-01-13 19:58 | disposition home or self-care (01) ==
LOC: EC 17:28
DX: R05 Cough (principal); R09.89 Other specified symptoms and signs involving the circulatory and respiratory systems; R68.83 Chills (without fever); F17.200 Nicotine dependence, unspecified, uncomplicated
CPT/HCPCS: 36415; 71046; 80048; 85025; 87502; 99283

== ENCOUNTER 2020-12-08 13:31 | Inpatient (IN) | payer OTHER ==
[2020-12-08] MEDS ORDERED: SODIUM CHLORIDE 0.9% 500 ML 500 ML IV STA (14:18)
[2020-12-08] MEDS ORDERED: ONDANSETRON 4 MG/2 ML VIAL IVP STA (14:24)
--- NOTE | 2020-12-08 14:54 | CT ---
EXAMINATION TYPE: CT brain wo con DATE OF EXAM: 12/08/2020 COMPARISON: CT brain June 02, 2017 HISTORY: Seizure CT DLP: 1025.4 mGycm. Automated Exposure Control for Dose Reduction was Utilized. FINDINGS: There is no acute intracranial hemorrhage or midline shift identified. There is diffuse v entricular and sulcal prominence consistent with diffuse age-related cerebral atrophy. Keller-white mat ter differentiation fairly well maintained. Small to moderate-sized arachnoid cyst anterior left midd le cranial fossa axial image 13 is redemonstrated. NaSal septum deviated to right of midline. The omar bes are intact and the visualized sinuses are clear. The calvarium is intact. IMPRESSION: No acute intracranial hemorrhage or midline shift. There is mild to moderate diffuse ag e-related cerebral atrophy and small to moderate size left arachnoid cyst redemonstrated. No signific ant change from prior CT.
[2020-12-08 15:22] LABS: Basophils % (A) 1 %; Eosinophils # (A) 0.1 k/uL (0-0.7); Eosinophils % (A) 2 %; HCT 26.1 % (39.0-53.0); HGB 8.7 gm/dL (13.0-17.5); Lymphocytes % (A) 22 %; MCH 31.8 pg (25.0-35.0); MCHC 33.3 g/dL (31.0-37.0); MCV 95.5 fL (80.0-100.0); Mean Platelet Volume 8.4; Monocytes # (A) 0.3 k/uL (0-1.0); Monocytes % (A) 7 %; Neutrophils # (A) 3.1 k/uL (1.3-7.7); Neutrophils % (A) 67 %; Platelet Count 137 k/uL (150-450); RBC 2.74 m/uL (4.30-5.90); RDW 13.4 % (11.5-15.5); WBC 4.6 k/uL (3.8-10.6)
[2020-12-08 15:25] LABS: AST 184 U/L (17-59); African American GFR (CKD) >90 (>60 ml/min/1.73 sqM); Albumin 4.5 g/dL (3.5-5.0); Alcohol <10 mg/dL; Alkaline Phosphatase 108 U/L (38-126); Anion Gap 17 mmol/L; Blood Urea Nitrogen 6 mg/dL (9-20); Calcium 9.5 mg/dL (8.4-10.2); Carbon Dioxide 19 mmol/L (22-30); Chloride 101 mmol/L (98-107); Glucose 135 mg/dL (74-99); Non-African American GFR(CKD) >90 (>60 ml/min/1.73 sqM); Potassium 3.8 mmol/L (3.5-5.1); Sodium 137 mmol/L (137-145); Total Bilirubin 0.9 mg/dL (0.2-1.3); Total Protein 7.5 g/dL (6.3-8.2)
[2020-12-08] MEDS ORDERED: PANTOPRAZOLE 40 MG/10 ML VIAL IVP ONE (15:32)
[2020-12-08] MEDS ORDERED: LORazepam 2 MG/ML INJ IV PRN ×2 (15:33)
[2020-12-08] MEDS ORDERED: THIAMINE 100 MG/ML 2 ML VIAL IM STA (15:33)
[2020-12-08 16:02] LABS: ALT 104 U/L (4-49)
[2020-12-08] MEDS ORDERED: NALOXONE 0.4 MG/ML 1 ML VIAL IV PRN (16:03)
--- NOTE | 2020-12-08 16:04 | ED ---
Seizure HPI - General Chief Complaint: Seizure Stated Complaint: seizure Time Seen by Provider: 12/08/20 14:05 Source: patient Mode of arrival: ambulatory Limitations: no limitations - History of Present Illness Initial Comments: 45 year old male with history of seizure disorder on Keppra presents emergency department today for chief complaint of breakthrough seizure. states patient was sitting on the couch watching TV when he had a seizure she states he rolled off onto the carpet. She states that it was tonic-clonic entire body seizing. She states the patient has been complaining of some nausea for the past 2 days. She states that she is alsoa patient's had bright red blood and some dark stools. She states he abuses ETOH daily. Patient states he had a few sips today. Patient admits to slight headache/nausea. Denies abdominal pain, ch est pain, dyspnea, fevers, cough. Patient has no additional complaints. - Related Data Previous Rx's Medication Instructions Recorded Escitalopram [Lexapro] 20 mg PO DAILY #30 tab 07/30/19 levETIRAcetam [Keppra] 500 mg PO BID #60 tab 07/30/19 Allergies Allergy/AdvReac Type Severity Reaction Status Date / Time No Known Allergies Allergy Verified 12/08/20 15:50 Review of Systems ROS Statement: Those systems with pertinent positive or pertinent negative responses have been documented in the HPI. ROS Other: All systems not noted in ROS Statement are negative. Past Medical History Past Medical History: GERD/Reflux, Memory Impairment, Seizure Disorder Additional Past Medical History / Comment(s): RT clavicle fracture age 6 AND AGAIN AT AGE 7 OR 8, l knee injury-TORN MENISCUS, PALPATATIONS, "I HAVE PASSED BLOOD RECTALLY BUT NEVER HAD IT CHECKED OUT", PT STATED HE WAS DX W/AUTISM,OCD,ADD."donates plasma twice a week" History of Any Multi-Drug Resistant Organisms: None Reported Past Surgical History: No Surgical Hx Reported Additional Past Surgical History / Comment(s): had all teeth extracted Past Anesthesia/Blood Transfusion Reactions: Motion Sickness, Postoperative Nausea & Vomiting (PONV) Past Psychological History: ADD/ADHD, Anxiety, Depression Smoking Status: Current some day smoker Past Alcohol Use History: Daily, Heavy Past Drug Use History: None Reported - Past Family History Father History Unknown: Yes Mother History Unknown: Yes General Exam - General Exam Comments Initial Comments: General: The patient is awake and alert, in no distress Eye: +3 mm pupils are equal, round and reactive to light, extra-ocular movements are intact. No nystagmus. There is normal conjunctiva bilaterally. No signs of icterus. Ears, nose, mouth and throat: There are moist mucous membranes and no oral lesions. Neck: The neck is supple, there is no tenderness or JVD. Cardiovascular: There is a regular rate and rhythm. No murmur, rub or gallop is appreciated. Respiratory: Lungs are clear to auscultation, respirations are non-labored, breath sounds are equal. No wheezes, stridor, rales, or rhonchi. Gastrointestinal: Soft, non-distended, non-tender abdomen without masses or organomegaly noted. There is no rebound or guarding present. : no bright red blood, brown stool. no black stool Musculoskeletal: Normal ROM, no tenderness. Strength 5/5. Sensation intact. Radial pulses equal bilaterally 2+. Neurological: A&O x 3. CN II-XII intact grossly, There are no obvious motor or sensory deficits. Coordination appears grossly intact. Speech is normal. Skin: Skin is warm and dry and no rashes or lesions are noted. Psychiatric: Cooperative, appropriate mood & affect, normal judgment. Limitations: no limitations Course Vital Signs 12/08/20 12/08/20 12/08/20 13:40 15:02 16:30 Temperature 98.6 F Pulse Rate 97 87 86 Respiratory 20 20 18 Rate Blood Pressure 143/98 126/78 126/87 O2 Sat by Pulse 99 99 98 Oximetry 12/08/20 16:49 Temperature 98.1 F Pulse Rate Respiratory Rate Blood Pressure O2 Sat by Pulse Oximetry Medical Decision Making - Medical Decision Making Hgb 8.9 significantly lower than patient previous last year. pt abuses ETOH. Hx of bloody stool. no blood on exam. no dark stools on exam. occult (-). pt appear pale. pt has no focal neurological deficits. CT (-). Given patient Hgb with hx of bleeding concern for bleeidng peptic ulcer. patietn will be admitted for further monitoring of HgB. Patient agreeable to care plan and admission. Dr. cooper agreeable to care plan and reviewed labs discussed hx. - Lab Data Result diagrams: 12/08/20 14:56 12/08/20 14:56 Lab Results 12/08/20 12/08/20 Range/Units 14:56 14:56 WBC 4.6 (3.8-10.6) k/uL RBC 2.74 L (4.30-5.90) m/uL Hgb 8.7 L (13.0-17.5) gm/dL Hct 26.1 L (39.0-53.0) % MCV 95.5 (80.0-100.0) fL MCH 31.8 (25.0-35.0) pg MCHC 33.3 (31.0-37.0) g/dL RDW 13.4 (11.5-15.5) % Plt Count 137 L (150-450) k/uL MPV 8.4 Neutrophils % 67 % Lymphocytes % 22 % Monocytes % 7 % Eosinophils % 2 % Basophils % 1 % Neutrophils # 3.1 (1.3-7.7) k/uL Lymphocytes # 1.0 (1.0-4.8) k/uL Monocytes # 0.3 (0-1.0) k/uL Eosinophils # 0.1 (0-0.7) k/uL Basophils # 0.0 (0-0.2) k/uL Sodium 137 (137-145) mmol/L Potassium 3.8 (3.5-5.1) mmol/L Chloride 101 (98-107) mmol/L Carbon Dioxide 19 L (22-30) mmol/L Anion Gap 17 mmol/L BUN 6 L (9-20) mg/dL Creatinine 0.56 L (0.66-1.25) mg/dL Est GFR (CKD-EPI)AfAm >90 (>60 ml/min/1.73 sqM) Est GFR (CKD-EPI)NonAf >90 (>60 ml/min/1.73 sqM) Glucose 135 H (74-99) mg/dL Calcium 9.5 (8.4-10.2) mg/dL Total Bilirubin 0.9 (0.2-1.3) mg/dL AST 184 H (17-59) U/L ALT 104 H (4-49) U/L Alkaline Phosphatase 108 (38-126) U/L Total Protein 7.5 (6.3-8.2) g/dL Albumin 4.5 (3.5-5.0) g/dL Serum Alcohol <10 mg/dL Disposition Clinical Impression: Anemia, History of bloody stools, Seizure, Hx of tonic-clonic seizures, Nausea Disposition: ADMITTED IP TO THIS [facility] Condition: Stable Is patient prescribed a controlled substance at d/c from ED?: No Time of Disposition: 16:04 Decision to Admit Reason: Admit from EC Decision Date: 12/08/20 Decision Time: 16:04
[2020-12-08 16:52] LABS: Appearance,Urine Cloudy (Clear); Bacteria,Urine Rare /hpf; Bilirubin,Urine Negative (Negative); Blood,Urine Trace (Negative); Color,Urine Yellow; Glucose,Urine (UA) Negative (Negative); Hyaline Casts,Urine 6 /lpf (0-2); Ketones,Urine 1+ (Negative); Leukocyte Esterase,Urine Negative (Negative); Mucus,Urine Moderate /hpf; Nitrite,Urine Negative (Negative); PH, Urine 6.5 (5.0-8.0); Protein,Urine 2+ (Negative); RBC,Urine 3 /hpf (0-5); Sperm,Urine Rare /hpf; Urobilinogen,Urine <2.0 mg/dL (<2.0); WBC,Urine 4 /hpf (0-5)
[2020-12-08 16:58] LABS: Amphetamine Screen,Urine Not Detected (NotDetected); Barbiturate Screen,Urine Not Detected (NotDetected); Benzodiazepines Screen,Urine Not Detected (NotDetected); Cocaine Screen,Urine Not Detected (NotDetected); Methadone Screen, Urine Not Detected (NotDetected); Opiate Screen,Urine Not Detected (NotDetected); Oxycodone Screen, Urine Not Detected (NotDetected); Phencyclidine Screen,Urine Not Detected (NotDetected); Tricyclic Antidepressant,Urine Not Detected (NotDetected); Urn Cannabinoid Scrn Not Detected (NotDetected)
[2020-12-08] MEDS: LORazepam 2 MG/ML INJ IV PRN (17:21)
--- NOTE | 2020-12-08 18:50 | P.CONS ---
History of Present Illness - Reason for Consult Consult date: 12/08/20 Anemia, mild thrombocytopenia - History of Present Illness The patient is a 45-year-old white male with multiple medical problems. These include a history of seizure disorder for which the patient is on chronic Keppra. The patient had a witnessed tonic-clonic seizure ,while sitting on the couch, by his . He was brought to the hospital, where he was found to have a hemoglobin of 8.8 and platelets of 137. Other CBC indices were normal. Review of prior labs in the EMR actually showed prior hemoglobins to be in the high normal range. Platelets had been intermittently low previously. The patient did have a history of intermittent nausea and vomiting. However he denied finding of any melquiades blood, or coffee grounds. No history of any bleeding in the stool or black stools. He has never had an EGD or colonoscopy. He states that he was diagnosed with gastric ulcers in his childhood via a barium study. Consult was therefore placed a further evaluation and recommendations Review of Systems Constitutional: Reports weakness Eyes: denies blurred vision, denies pain Ears: deny: decreased hearing, ear discharge, earache, tinnitus Ears, nose, mouth and throat: Denies headache, Denies sore throat Cardiovascular: Reports decreased exercise tolerance Respiratory: Denies cough Gastrointestinal: Reports heartburn, Reports nausea, Reports vomiting Genitourinary: Reports as per HPI Musculoskeletal: Reports muscle weakness Integumentary: Denies pruritus, Denies rash Neurological: Reports as per HPI, Reports convulsions Psychiatric: Denies anxiety, Denies depression Endocrine: Reports fatigue Hematologic/Lymphatic: Reports as per HPI Past Medical History Past Medical History: GERD/Reflux, Memory Impairment, Seizure Disorder Additional Past Medical History / Comment(s): RT clavicle fracture age 6 AND AGAIN AT AGE 7 OR 8, l knee injury-TORN MENISCUS, PALPATATIONS, "I HAVE PASSED BLOOD RECTALLY BUT NEVER HAD IT CHECKED OUT", PT STATED HE WAS DX W/AUTISM,OCD,ADD."donates plasma twice a week" History of Any Multi-Drug Resistant Organisms: None Reported Past Surgical History: No Surgical Hx Reported Additional Past Surgical History / Comment(s): had all teeth extracted Past Anesthesia/Blood Transfusion Reactions: Motion Sickness, Postoperative Nausea & Vomiting (PONV) Past Psychological History: ADD/ADHD, Anxiety, Depression Smoking Status: Current some day smoker Past Alcohol Use History: Daily, Heavy Past Drug Use History: None Reported - Past Family History Father History Unknown: Yes Mother History Unknown: Yes Medications and Allergies Home Medications Medication Instructions Recorded Confirmed Type Escitalopram [Lexapro] 20 mg PO DAILY #30 tab 07/30/19 12/08/20 Rx levETIRAcetam [Keppra] 500 mg PO BID #60 tab 07/30/19 12/08/20 Rx Allergies Allergy/AdvReac Type Severity Reaction Status Date / Time No Known Allergies Allergy Verified 12/08/20 17:29 Physical Exam Vitals: Vital Signs Temp Pulse Pulse Resp BP BP Pulse Ox 12/08/20 17:23 98.0 F 81 17 134/87 98 12/08/20 16:49 98.1 F 12/08/20 16:30 86 18 126/87 98 12/08/20 15:02 87 20 126/78 99 12/08/20 13:40 98.6 F 97 20 143/98 99 Intake and Output 12/08/20 12/08/20 12/08/20 06:59 14:59 22:59 Other: Weight 65.907 kg 65.907 kg - Constitutional General appearance: no acute distress - EENT Eyes: EOMI, PERRLA ENT: hearing grossly normal, normal oropharynx - Neck Neck: no lymphadenopathy Thyroid: bilateral: normal size - Respiratory Respiratory: bilateral: CTA - Cardiovascular Rhythm: regular Heart sounds: normal: S1, S2 - Gastrointestinal General gastrointestinal: normal bowel sounds, soft - Integumentary Integumentary: normal - Neurologic Neurologic: CNII-XII intact - Musculoskeletal Musculoskeletal: generalized weakness, strength equal bilaterally - Psychiatric Psychiatric: A&O x's 3, appropriate affect Results CBC & Chem 7: 12/08/20 14:56 12/08/20 14:56 Labs: Abnormal Lab Results - Last 24 Hours (Table) 12/08/20 12/08/20 12/08/20 Range/Units 14:56 14:56 16:33 RBC 2.74 L (4.30-5.90) m/uL Hgb 8.7 L (13.0-17.5) gm/dL Hct 26.1 L (39.0-53.0) % Plt Count 137 L (150-450) k/uL Carbon Dioxide 19 L (22-30) mmol/L BUN 6 L (9-20) mg/dL Creatinine 0.56 L (0.66-1.25) mg/dL Glucose 135 H (74-99) mg/dL AST 184 H (17-59) U/L ALT 104 H (4-49) U/L Urine Protein 2+ H (Negative) Urine Ketones 1+ H (Negative) Urine Blood Trace H (Negative) Urine Bacteria Rare H (None) /hpf Hyaline Casts 6 H (0-2) /lpf Urine Mucus Moderate H (None) /hpf Chest x-ray: report reviewed CT Scan - head: report reviewed Assessment and Plan (1) Anemia Narrative/Plan: The patient's anemia is new, with prior labs and the MRI study showing high normal to occasionally high hemoglobin. this is normochromic and normocytic. Etiologies at this time include blood loss anemia, as well as possible cumulative marrow suppression from completion of anti-seizure medicine and regular, (at least moderate) alcohol use. Other causes not ruled out. - At this time hemoglobin is in a safe range. Therefore no acute intervention terms of transfusion is required. Continue to monitor and transfuse only if less than 7. -Anemia workup will be ordered. Further recommendations based anemia workup. Current Visit: Yes Status: Acute Code(s): D64.9 - ANEMIA, UNSPECIFIED SNOMED Code(s): 469492070 (2) Thrombocytopenia Narrative/Plan: This has been present intermittently on prior labs and has been fairly mild. Current count is well within a safe range at 137,000. Possible etiologies include alcohol-related effect on bone marrow, as well as seizure medication effect. No acute intervention required at this level. Additional labs will be ordered for workup, most of which will also overlap with the above-mentioned anemia workup. Continue to monitor counts while workup is pending. I will also check ultrasound of the liver and spleen check for occult liver disease as a possible cause. Current Visit: Yes Status: Acute Code(s): D69.6 - THROMBOCYTOPENIA, UNSPECIFIED SNOMED Code(s): 284286946 Plan: Defer to the admitting service for management of his other medical problems
[2020-12-08 19:17] LABS: Reticulocyte % 2.5 % (0.5-2.0)
--- NOTE | 2020-12-08 19:29 | P.CNNES ---
History of Present Illness Consult date: 12/08/20 Requesting physician: Meg Bates Reason for Consult: break-through seizure History of Present Illness: This is a 45-year-old gentleman with medical history of seizure, alcohol withdrawal seizure, heavy alcohol use that presented to the emergency department on 12/08/2020 because of her breakthrough seizure. Patient stated that he had a seizure and does not recall what happened the was notified by his that he had a seizure that lasted for 45 minutes in which he was jerk in the extremities. He denied any urinary or bowel incontinence with this episode or tongue bite. He stated that he is on Keppra 500 mg 1 tablet twice a day and he has not missed any of his medication. He did acknowledge that he drinks heavily and he drinks 3 cans of beer daily and each [place] is a 20 for balance and he's been doing for more than 20 years but in the last 2-3 days he has been drinking in the half a can to 1 can a day. According to the the ED notes his stated that the patient was sitting on a Large DVT that he rolled over onto her carpets and started having tonic-clonic the body jerk in. Also in the ED note that it's stated that the patient has been nauseous for the last 2 days and has had bright red blood and dark stools recently. She denies off any fever, headache, focal weakness. Regarding his seizures he stated that the he had them for a little bit more than a year and he's been on the same dose of Keppra 500 mg 1 tablet twice a day the. He states that he follows up with his primary care will manage his as seizures and has not seen a neurologist in the past or has not had any EEG according to him. He said that the bright lights can trigger his seizures. Patient's history he said that he was a product of term, normal vaginal delivery and no complication as far as he knows. He denied any family history of seizures. Workup in the hospital consisted of: Initial vital signs his blood pressure of 143/98, heart rate of 97, respiratory of 20, temperature of 98.6 Fahrenheit oral and pulse ox of 99% at room air. CT of the head is reported as no acute intracranial hemorrhage or midline shift. There is a mild to moderate diffuse age-related cerebral atrophy and small moderate size left arachnoid cyst redemonstrated. No significant change from prior CT His hemoglobin on presentation is 8.7 his baseline is usually normal running between 16 and a one-time was 18.3 last on 2019. His AST is 184 and ALT is 104. Alcohol level is less than 10. His stool occult blood is negative. Review of Systems Review of system: The 12 point system was reviewed and apparent positive and negative per HPI. Past Medical History Past Medical History: GERD/Reflux, Memory Impairment, Seizure Disorder Additional Past Medical History / Comment(s): RT clavicle fracture age 6 AND AGAIN AT AGE 7 OR 8, l knee injury-TORN MENISCUS, PALPATATIONS, "I HAVE PASSED BLOOD RECTALLY BUT NEVER HAD IT CHECKED OUT", PT STATED HE WAS DX W/AUTISM,OCD,ADD."donates plasma twice a week" History of Any Multi-Drug Resistant Organisms: None Reported Past Surgical History: No Surgical Hx Reported Additional Past Surgical History / Comment(s): had all teeth extracted Past Anesthesia/Blood Transfusion Reactions: Motion Sickness, Postoperative Nausea & Vomiting (PONV) Past Psychological History: ADD/ADHD, Anxiety, Depression Smoking Status: Current some day smoker Past Alcohol Use History: Daily, Heavy Past Drug Use History: None Reported - Past Family History Father History Unknown: Yes Mother History Unknown: Yes Medications and Allergies Home Medications Medication Instructions Recorded Confirmed Type Escitalopram [Lexapro] 20 mg PO DAILY #30 tab 07/30/19 12/08/20 Rx levETIRAcetam [Keppra] 500 mg PO BID #60 tab 07/30/19 12/08/20 Rx Allergies Allergy/AdvReac Type Severity Reaction Status Date / Time No Known Allergies Allergy Verified 12/08/20 17:29 Physical Examination - Vital Signs Vital Signs: Vital Signs Temp Pulse Pulse Resp BP BP Pulse Ox 12/08/20 17:23 98.0 F 81 17 134/87 98 12/08/20 16:49 98.1 F 12/08/20 16:30 86 18 126/87 98 12/08/20 15:02 87 20 126/78 99 12/08/20 13:40 98.6 F 97 20 143/98 99 Intake and Output 12/08/20 12/08/20 12/08/20 06:59 14:59 22:59 Other: Weight 65.907 kg 65.907 kg GENERAL: The patient is lying in bed and is not in acute distress but seem tremulous. CHEST: The heart rate is regular rate rhythm. No murmurs to auscultation. No carotid bruit bilaterally. LUNG: Clear to auscultation bilaterally no wheezing noted throughout. Not labored breathing. ABDOMEN/GI: Bowel sounds present in all 4 quadrants. No tenderness to palpation throughout. NEUROLOGICAL: Higher mental function: The patient is awake, alert, oriented to self, place and time. Patient is following commands. No aphasia and no neglect. Cranial nerves: The pupils are round, equal and reactive to light and accommodation. Visual chatman are full to confrontation throughout. Extraocular movement is intact no nystagmus is noted. Facial sensation is normal to touch throughout. The facial strength is normal throughout. Hearing is normal bilaterally to hand rub. Tongue is midline and moved [id number] without any difficulty. No dysarthria is noted. Shoulder shrug is normal bilaterally. Motor: Gait is deferred. The strength is 5 over 5 throughout. Normal tone and bulk. He seems to have some tremor of the upper extremities, seems tremulous. Cerebellum: Normal finger to nose bilaterally. Sensation: Sensation is normal to touch throughout. Reflexes (right/left): 2+ Plantars are downgoing bilaterally. Results Urine drug screen is negative. U/A is negative for UTI. - Laboratory Findings CBC and BMP: 12/08/20 14:56 12/08/20 14:56 Abnormal Lab Findings: Abnormal Labs 12/08/20 12/08/20 12/08/20 14:56 14:56 16:33 RBC 2.74 L Hgb 8.7 L Hct 26.1 L Plt Count 137 L Carbon Dioxide 19 L BUN 6 L Creatinine 0.56 L Glucose 135 H AST 184 H ALT 104 H Urine Protein 2+ H Urine Ketones 1+ H Urine Blood Trace H Urine Bacteria Rare H Hyaline Casts 6 H Urine Mucus Moderate H Assessment and Plan Assessment: This is a 45-year-old gentleman with medical history of seizure, alcohol withdrawal seizure, heavy alcohol use that presented to the emergency department on 12/08/2020 because of her breakthrough seizure. Patient drinks 3 beers of 24 ounces daily for more than 20 years and the last 2-3 days he has been drinking a half to 1 can of beer. Provoked seizure due to alcohol withdrawl History of seizure Elevated liver function test Acute Anemia Chronic heavy alcohol use Tobacco use . Plan: Patient is currently on Keppra 500 mg 1 tablet twice a day. I increase it to 750 mg twice a day. Patient does not need the an urgent/stat EEG. Will consider getting a routine EEG on Friday if the patient missed it continues to be here. The patient was started on thiamine 100 mg 1 tablet twice a day. Folic acid and the vitamin B12 is ordered by hematology team. We'll defer the management of anemia to the hematology team. Patient is on CIWA protocol and we'll defer the management to the primary team. Patient was counseled on the alcohol cessation as well as tobacco cessation. Physical seizure episode the patient is to avoid the driving per [place] DMV for 6 month until seizure-free. He is to avoid the [place], heavy machinery or swimming unassisted. The patient needs to follow-up with a neurologist as an outpatient within 2 w eeks upon discharge. Thank you for the consultation. Horacio Mora MD Neuro-hospitalist Time with Patient: Greater than 30
[2020-12-08] MEDS: SODIUM CHLORIDE 0.9% 1,000 ML IV SCH (19:55)
--- NOTE | 2020-12-08 20:32 | US ---
EXAMINATION TYPE: US abdomen limited DATE OF EXAM: 12/08/2020 COMPARISON: NONE CLINICAL HISTORY: Thrombocytopenia, possible hepatosplenomegaly. . thrombocytopenia EXAM MEASUREMENTS: Liver Length: 13.8 cm Gallbladder Wall: 0.3 cm CBD: 0.4 cm Right Kidney: 12.0 x 5.3 x 5.3 cm Spleen: 9.7cm *Technical limitations due to large amount of overlying bowel content Pancreas: slightly heterogeneous Liver: appears wnl as visualized Gallbladder: no evidence of stones Evidence for sonographic Addison's sign: no CBD: appears wnl Right Kidney: no evidence of hydronephrosis Spleen: appears wnl IMPRESSION: No dilated ducts. No focal liver defect. No evidence of pancreatic mass. No gallstones identified.
[2020-12-08] MEDS ORDERED: levETIRAcetam 500 MG TAB PO SCH (21:00)
[2020-12-09 02:55] LABS: % Iron Saturation 71.15 (15.00-50.00)
[2020-12-09 03:05] LABS: Protein, Total 6.1 g/dL (6.2-8.2)
[2020-12-09 03:16] LABS: Ferritin 1016.1 ng/mL (22.0-322.0)
[2020-12-09] MEDS ORDERED: THIAMINE 100 MG TAB PO SCH (07:30)
[2020-12-09] MEDS: SODIUM CHLORIDE 0.9% 1,000 ML IV SCH (07:36)
[2020-12-09 08:18] VITALS: BP 116/75; PULSE 64; TEMP 98.3
[2020-12-09] MEDS ORDERED: ESCITALOPRAM 20 MG TAB PO SCH (09:00)
[2020-12-09 09:34] VITALS: RESP 18
--- NOTE | 2020-12-09 12:02 | P.PN ---
Subjective Progress Note Date: 12/09/20 The patient appeared to be somewhat shaky, with generalized mild tremors. He denied any obvious bleeding. He states he had an episode of nausea and vomiting yesterday without any obvious bleeding. Objective - Vital Signs Vital signs: Vital Signs Temp 98.3 F 12/09/20 07:16 Pulse 64 12/09/20 07:16 Resp 18 12/09/20 08:30 BP 116/75 12/09/20 07:16 Pulse Ox 98 12/09/20 07:16 Intake & Output 12/08/20 12/09/20 12/09/20 18:59 06:59 18:59 Weight 65.907 kg Other: Voiding Method Toilet # Voids 2 - Constitutional General appearance: Present: no acute distress - EENT Eyes: Present: EOMI ENT: Present: hearing grossly normal, normal oropharynx - Respiratory Respiratory: bilateral: CTA - Cardiovascular Rhythm: regular Heart sounds: normal: S1, S2 - Gastrointestinal General gastrointestinal: Present: soft - Integumentary Integumentary: Present: normal - Neurologic Neurologic Comment(s): Generalized tremors Neurologic: Present: CNII-XII intact - Musculoskeletal Musculoskeletal: Present: generalized weakness, strength equal bilaterally - Psychiatric Psychiatric: Present: A&O x's 3, appropriate affect - Labs CBC & Chem 7: 12/08/20 14:56 12/08/20 14:56 Labs: Abnormal Lab Results - Last 24 Hours (Table) 12/08/20 12/08/20 12/08/20 Range/Units 14:26 14:26 14:26 RBC (4.30-5.90) m/uL Hgb (13.0-17.5) gm/dL Hct (39.0-53.0) % Plt Count (150-450) k/uL Retic Count 2.5 H (0.5-2.0) % Carbon Dioxide (22-30) mmol/L BUN (9-20) mg/dL Creatinine (0.66-1.25) mg/dL Glucose (74-99) mg/dL Iron 222 H (65-175) ug/dL % Saturation 71.15 H (15.00-50.00) Ferritin 1016.1 H (22.0-322.0) ng/mL AST (17-59) U/L ALT (4-49) U/L Total Protein (PEP) 6.1 L (6.2-8.2) g/dL Vitamin B12 1270.0 H (200.0-944.0) pg/mL Urine Protein (Negative) Urine Ketones (Negative) Urine Blood (Negative) Urine Bacteria (None) /hpf Hyaline Casts (0-2) /lpf Urine Mucus (None) /hpf Rheumatoid Factor 30 H (0-15) IU/mL 12/08/20 12/08/20 12/08/20 Range/Units 14:56 14:56 16:33 RBC 2.74 L (4.30-5.90) m/uL Hgb 8.7 L (13.0-17.5) gm/dL Hct 26.1 L (39.0-53.0) % Plt Count 137 L (150-450) k/uL Retic Count (0.5-2.0) % Carbon Dioxide 19 L (22-30) mmol/L BUN 6 L (9-20) mg/dL Creatinine 0.56 L (0.66-1.25) mg/dL Glucose 135 H (74-99) mg/dL Iron (65-175) ug/dL % Saturation (15.00-50.00) Ferritin (22.0-322.0) ng/mL AST 184 H (17-59) U/L ALT 104 H (4-49) U/L Total Protein (PEP) (6.2-8.2) g/dL Vitamin B12 (200.0-944.0) pg/mL Urine Protein 2+ H (Negative) Urine Ketones 1+ H (Negative) Urine Blood Trace H (Negative) Urine Bacteria Rare H (None) /hpf Hyaline Casts 6 H (0-2) /lpf Urine Mucus Moderate H (None) /hpf Rheumatoid Factor (0-15) IU/mL Assessment and Plan (1) Anemia Narrative/Plan: Anemia workup in progress. Labs so far essentially rule out iron or B12 deficiency. In fact iron stores are significantly elevated. - The patient was informed that based on this, there appears to be no evidence of blood loss as a cause of his anemia. Therefore at this time hypoproliferative anemia due to affect of alcohol and possibly his seizure medication remains a primary differential. Workup for other causes pending. The patient had initially stated that he only drank 2-3 beers a day, but history obtained from the emergency room notes, as well as his current status of generalized tremors indicates likely much heavier alcohol use. - Patient was advised that assuming other causes ruled out, and the treatment from our standpoint would be alcohol cessation, and monitoring as an outpatient to check for improvement in hemoglobin subsequently. - Discuss with nursing. As acute blood loss essentially ruled out, patient is okay for discharge from hematology standpoint with outpatient follow-up in 2-3 weeks. Current Visit: Yes Status: Acute Code(s): D64.9 - ANEMIA, UNSPECIFIED SNOMED Code(s): 221041048 (2) Thrombocytopenia Narrative/Plan: This was fairly minor as noted and did not require any intervention. Again if patient's hematology issues related to underlying alcohol use, this can be explained by the same. Current Visit: Yes Status: Acute Code(s): D69.6 - THROMBOCYTOPENIA, UNSPECIF IED SNOMED Code(s): 104089952
[2020-12-09] MEDS: LORazepam 2 MG/ML INJ IV PRN (12:03)
--- NOTE | 2020-12-09 12:49 | CONS ---
CONSULTATION DATE OF SERVICE: 12/09/2020 REASON FOR CONSULTATION: Anemia. HISTORY OF PRESENT ILLNESS: The patient is a 45-year-old pleasant white male admitted to the hospital following a seizure episode yesterday morning which was witnessed by his . He was brought to the emergency room and subsequently admitted to the hospital for further evaluation. Patient states that he has been having seizures for the last 9 years duration, has been on Keppra for a year and a half and has been taking it regularly. At the time of admission the hospital was noted to have anemia with a hemoglobin of 8.7, and hence we are consulted in regards to this issue. The patient denies any abdominal pain. No nausea, no vomiting. No rectal bleeding or melena. He reports peptic ulcer disease at age 9. No recent NSAID use. He was seen by Dr. Garcia yesterday, had further workup done for anemia. Iron studies showed an iron of 222, TIBC of 312, iron saturation of 71%, ferritin was 1016, vitamin B12 was 1270. Stool occult blood was negative. No history of EGD or colonoscopy in the past. PAST MEDICAL HISTORY: Significant for seizure disorder, history of gastroesophageal reflux disease and prior history of peptic ulcer disease. MEDICATIONS AT HOME: Include Keppra and Lexapro. ALLERGIES: No known drug allergies. SOCIAL HISTORY: Chronic smoker, no alcohol use. FAMILY HISTORY: Unremarkable. REVIEW OF SYSTEMS: CARDIOPULMONARY: No chest pain or shortness of breath. : No dysuria or hematuria. MUSCULOSKELETAL: Unremarkable. SKIN: Unremarkable. ENDOCRINE: Unremarkable. PSYCHIATRY: Unremarkable. NEUROLOGY: Seizures as mentioned above. CONSTITUTIONAL: No recent weight loss. No fever, chills, night sweats. HEMATOLOGY: Anemia as mentioned above. PAST SURGICAL HISTORY: Right clavicle surgery and knee surgery. PHYSICAL EXAMINATION: He appears comfortable. No apparent distress. VITAL SIGNS: Stable. Blood pressure 116/72, pulse rate 64, temperature 98.3. HEENT examination unremarkable. Conjunctivae pink. Sclerae anicteric. Oral cavity no lesions. NECK: No JVD or lymph node enlargement. CHEST: Clear to auscultation. HEART: Regular rate and rhythm. ABDOMEN: Soft. Bowel sounds are positive. No organomegaly. EXTREMITIES: No pedal edema. SKIN: No rashes. NEURO: He is alert and oriented x3. No focal deficits. LABS: Labs done at the time of admission to the hospital: WBC 4.6, hemoglobin 8.7, platelets are 137. Previous hemoglobin was 16 g/dL six months ago. BUN and creatinine are 6 and 0.5 respectively. ALT and AST were slightly elevated at 184 and 104 respectively. IMPRESSION: 1. Normocytic normochromic anemia. Iron indices are not consistent with iron deficiency anemia. Most likely anemia could be related to bone marrow pathology and at this time, I doubt we are dealing with any occult gastrointestinal blood loss causing the anemia. Dr. Garcia has already evaluated the patient and further workup is pending. 2. Mild thrombocytopenia. 3. Seizure disorder, presently on Keppra. RECOMMENDATIONS: 1. No indication for an endoscopic intervention at the present time. 2. Monitor CBC daily. 3. Will sign off. Please call us if needed. Thank you for this consultation. MMODL / IJN: [id number] /
--- NOTE | 2020-12-09 15:58 | P.HPIM ---
History of Present Illness H&P Date: 12/08/20 45 year old male with history of seizure disorder on Keppra presents emergency department today for chief complaint of breakthrough seizure. states patient was sitting on the couch watching TV when he had a seizure she states he rolled off onto the carpet. She states that it was tonic-clonic entire body seizing. She states the patient has been complaining of some nausea for the past 2 days. She states that she is alsoa patient's had bright red blood and some dark stools. She states he abuses ETOH daily. Patient states he had a few sips today. Patient admits to slight headache/nausea. Denies abdominal pain, chest pain, dyspnea, fevers, cough. Patient has no additional complaints. Review of Systems REVIEW OF SYSTEMS: CONSTITUTIONAL: No fever, no malaise, no fatigue. HEENT: No recent visual problems or hearing problems. Denied any sore throat. CARDIOVASCULAR: No chest pain, orthopnea, PND, no palpitations, no syncope. PULMONARY: No shortness of breath, no cough, no hemoptysis. GASTROINTESTINAL: No diarrhea, no nausea, no vomiting, no abdominal pain. NEUROLOGICAL: No headaches, no weakness, no numbness. HEMATOLOGICAL: Denies any bleeding or petechiae. GENITOURINARY: Denies any burning micturition, frequency, or urgency. MUSCULOSKELETAL/RHEUMATOLOGICAL: Denies any joint pain, swelling, or any muscle pain. ENDOCRINE: Denies any polyuria or polydipsia. The rest of the 14-point review of systems is negative. Past Medical History Past Medical History: GERD/Reflux, Memory Impairment, Seizure Disorder Additional Past Medical History / Comment(s): RT clavicle fracture age 6 AND AGAIN AT AGE 7 OR 8, l knee injury-TORN MENISCUS, PALPATATIONS, "I HAVE PASSED BLOOD RECTALLY BUT NEVER HAD IT CHECKED OUT", PT STATED HE WAS DX W/AUTISM,O CD,ADD."donates plasma twice a week" History of Any Multi-Drug Resistant Organisms: None Reported Past Surgical History: No Surgical Hx Reported Additional Past Surgical History / Comment(s): had all teeth extracted Past Anesthesia/Blood Transfusion Reactions: Motion Sickness, Postoperative Nausea & Vomiting (PONV) Past Psychological History: ADD/ADHD, Anxiety, Depression Smoking Status: Current some day smoker Past Alcohol Use History: Daily, Heavy Past Drug Use History: None Reported - Past Family History Father History Unknown: Yes Mother History Unknown: Yes Medications and Allergies Home Medications Medication Instructions Recorded Confirmed Type Escitalopram [Lexapro] 20 mg PO DAILY #30 tab 07/30/19 12/08/20 Rx Thiamine [Vitamin B-1] 100 mg PO BID-W/MEALS tab 12/09/20 Rx levETIRAcetam [Keppra] 750 mg PO Q12HR #60 tab 12/09/20 Rx Allergies Allergy/AdvReac Type Severity Reaction Status Date / Time No Known Allergies Allergy Verified 12/08/20 17:29 Physical Exam Vitals: Vital Signs Temp Pulse Resp BP Pulse Ox 12/08/20 16:30 86 18 126/87 98 12/08/20 15:02 87 20 126/78 99 12/08/20 13:40 98.6 F 97 20 143/98 99 Intake and Output 12/08/20 12/08/20 12/08/20 06:59 14:59 22:59 Other: Weight 65.907 kg PHYSICAL EXAMINATION: GENERAL: The patient is alert and oriented x3, not in any acute distress. Well developed, well nourished. HEENT: Pupils are round and equally reacting to light. EOMI. No scleral icterus. No conjunctival pallor. Normocephalic, atraumatic. No pharyngeal erythema. No thyromegaly. CARDIOVASCULAR: S1 and S2 present. No murmurs, rubs, or gallops. PULMONARY: Chest is clear to auscultation, no wheezing or crackles. ABDOMEN: Soft, nontender, nondistended, normoactive bowel sounds. No palpable organomegaly. MUSCULOSKELETAL: No joint swelling or deformity. EXTREMITIES: No cyanosis, clubbing, or pedal edema. NEUROLOGICAL: Gross neurological examination did not reveal any focal deficits. SKIN: No rashes. Results CBC & Chem 7: 12/08/20 14:56 12/08/20 14:56 Labs: Abnormal Lab Results - Last 24 Hours (Table) 12/08/20 12/08/20 Range/Units 14:56 14:56 RBC 2.74 L (4.30-5.90) m/uL Hgb 8.7 L (13.0-17.5) gm/dL Hct 26.1 L (39.0-53.0) % Plt Count 137 L (150-450) k/uL Carbon Dioxide 19 L (22-30) mmol/L BUN 6 L (9-20) mg/dL Creatinine 0.56 L (0.66-1.25) mg/dL Glucose 135 H (74-99) mg/dL AST 184 H (17-59) U/L ALT 104 H (4-49) U/L Assessment and Plan Assessment: 1. Provoked seizure due to alcohol withdrawl - Patient is admitted with IV fluids in form of banana bag, thiamine 100 mg daily, CIWA protocol with Ativan 2. History of seizure - Neurology is consulted; patient is currently taking Keppra 500 mg twice a day; no recommending to increase it to 750 mg daily; with plans for a non-urgent EEG which could be done inpatient versus outpatient 3. Elevated liver function test; possibly medication effect; we will monitor closely 4. Acute Anemia; patient's stool occult blood has been negative; we will monitor H&H closely and consult hematology for further recommendations 5. Chronic heavy alcohol use; counseling done for need for alcohol cessation 6. Tobacco use; we will order nicotine patch; counseling done DVT prophylaxis; SCDs CODE STATUS; full code .
--- NOTE | 2020-12-09 16:10 | P.DS ---
Providers Date of admission: 12/08/20 15:51 Expected date of discharge: 12/09/20 Attending physician: Mily Rodriguez Consults: 12/08/20 16:04 Consult Physician Routine Consulting Provider: Horacio Mora Consult Reason/Comments: break through seizures Do you want consulting provider notified?: Yes, Notify in am 12/08/20 17:51 Consult Physician Routine Consulting Provider: Vickie Mayo Consult Reason/Comments: anemia/possible gi bleed Do you want consulting provider notified?: Yes 12/08/20 17:52 Consult Physician Routine Consulting Provider: Altaf Garcia Consult Reason/Comments: anemia Do you want consulting provider notified?: Yes, Notify in am Primary care physician: [facility] Hospital Course: 45-year-old gentleman with medical history of seizure, alcohol withdrawal seizure, heavy alcohol use that presented to the emergency department on 12/08/2020 because of her breakthrough seizure. Patient stated that he had a seizure and does not recall what happened the was notified by his that he had a seizure that lasted for 45 minutes in which he was jerk in the extremities. He denied any urinary or bowel incontinence with this episode or tongue bite. He stated that he is on Keppra 500 mg 1 tablet twice a day and he has not missed any of his medication. He did acknowledge that he drinks heavily and he drinks 3 cans of beer daily and each [place] is a 20 for balance and he's been doing for more than 20 years but in the last 2-3 days he has been drinking in the half a can to 1 can a day. According to the the ED notes his stated that the patient was sitting on a Large DVT that he rolled over onto her carpets and started having tonic-clonic the body jerk in. Also in the ED note that it's stated that the patient has been nauseous for the last 2 days and has had bright red blood and dark stools recently. She denies off any fever, headache, focal weakness. Regarding his seizures he stated that the he had them for a little bit more than a year and he's been on the same dose of Keppra 500 mg 1 tablet twice a day the. He states that he follows up with his primary care will manage his as seizures and has not seen a neurologist in the past or has not had any EEG according to him. He said that the bright lights can trigger his seizures. Patient's history he said that he was a product of term, normal vaginal delivery and no complication as far as he knows. He denied any family history of seizures. Workup in the hospital consisted of: Initial vital signs his blood pressure of 143/98, heart rate of 97, respiratory of 20, temperature of 98.6 Fahrenheit oral and pulse ox of 99% at room air. CT of the head is reported as no acute intracranial hemorrhage or midline shift. There is a mild to moderate diffuse age-related cerebral atrophy and small moderate size left arachnoid cyst redemonstrated. No significant change from prior CT His hemoglobin on presentation is 8.7 his baseline is usually normal running between 16 and a one-time was 18.3 last on 2019. His AST is 184 and ALT is 104. Alcohol level is less than 10. His stool occult blood is negative. Patient was seen by neurology; Patient is currently on Keppra 500 mg 1 tablet twice a day. I increase it to 750 mg twice a day. Patient does not need the an urgent/stat EEG. Will consider getting a routine EEG on Friday if the patient missed it continues to be here. The patient was started on thiamine 100 mg 1 tablet twice a day. Folic acid and the vitamin B12 is ordered by hematology team. Anemia workup in progress. Labs so far essentially rule out iron or B12 deficiency. In fact iron stores are significantly elevated. - The patient was informed that based on this, there appears to be no evidence of blood loss as a cause of his anemia. Therefore at this time hypoproliferative anemia due to affect of alcohol and possibly his seizure medication remains a primary differential. Workup for other causes pending. The patient had initially stated that he only drank 2-3 beers a day, but history obtained from the emergency room notes, as well as his current status of generalized tremors indicates likely much heavier alcohol use. - Patient was advised that assuming other causes ruled out, and the treatment from our standpoint would be alcohol cessation, and monitoring as an outpatient to check for improvement in hemoglobin subsequently. Patient was advised follow-up with hematology and neurology in 2-3 weeks as an outpatient Patient Condition at Discharge: Stable Plan - Discharge Summary New Discharge Prescriptions: New levETIRAcetam [Keppra] 750 mg PO Q12HR #60 tab Thiamine [Vitamin B-1] 100 mg PO BID-W/MEALS tab Continue Escitalopram [Lexapro] 20 mg PO DAILY #30 tab Discontinued levETIRAcetam [Keppra] 500 mg PO BID #60 tab Discharge Medication List Escitalopram [Lexapro] 20 mg PO DAILY #30 tab 07/30/19 [Rx] Thiamine [Vitamin B-1] 100 mg PO BID-W/MEALS tab 12/09/20 [Rx] levETIRAcetam [Keppra] 750 mg PO Q12HR #60 tab 12/09/20 [Rx] Follow up Appointment(s)/Referral(s): Marilou Graves MD [Primary Care Provider] - 1-2 days Patient Instructions/Handouts: Abuse of Alcohol (DC), Recurrent Seizures in Adults (DC), Anemia (DC) Activity/Diet/Wound Care/Special Instructions: Avoid driving per [place] DMV for 6 month until seizure-free; avoid the [place], heavy machinery or swimming unassisted. Discharge Disposition: HOME SELF-CARE
[2020-12-10 11:22] LABS: Free Kappa Lt Chain Qnt, Serum 1.75 mg/dL (0.33-1.94)
[2020-12-11 13:57] LABS: Albumin 3.41 g/dL (3.80-4.90); Gamma Globulin 0.94 g/dL (0.70-1.50)
[2020-12-12 07:21] LABS: Methylmalonic Acid <0.10 umol/L (<0.40)
== END 2020-12-09 15:50 | disposition home or self-care (01) | DRG 100 ==
LOC: EC 13:31 → 4SSUR 15:51
PROVIDERS: ADMIT Hospitalist; ATTEND Hospitalist
DX: G40.909 Epilepsy, unspecified, not intractable, without status epilepticus (principal); D61.2 Aplastic anemia due to other external agents; D61.1 Drug-induced aplastic anemia; F10.239 Alcohol dependence with withdrawal, unspecified; F84.0 Autistic disorder; F90.9 Attention-deficit hyperactivity disorder, unspecified type; F41.9 Anxiety disorder, unspecified; F42.9 Obsessive-compulsive disorder, unspecified; Z87.11 Personal history of peptic ulcer disease; Z79.899 Other long term (current) drug therapy; G93.0 Cerebral cysts; T51.0X1A Toxic effect of ethanol, accidental (unintentional), initial encounter; T42.6X5A Adverse effect of other antiepileptic and sedative-hypnotic drugs, initial encounter; D69.6 Thrombocytopenia, unspecified; Z71.6 Tobacco abuse counseling; F17.210 Nicotine dependence, cigarettes, uncomplicated; Z71.41 Alcohol abuse counseling and surveillance of alcoholic; F32.9 Major depressive disorder, single episode, unspecified; G31.9 Degenerative disease of nervous system, unspecified; K08.109 Complete loss of teeth, unspecified cause, unspecified class; R94.5 Abnormal results of liver function studies
CPT/HCPCS: 36415; 70450; 76705; 80053; 80177; 80306; 80320; 81001; 82272; 82607; 82728; 82747; 83010; 83540; 83550; 83883; 83921; 84165; 85025; 85045; 86038; 86334; 86431; 93005; 96361; 96372; 96374; 96375; 99285

== ENCOUNTER 2021-02-28 07:54 | Day surgery (SDC) | payer OTHER ==
[2021-02-22 17:50] VITALS: BMI 20.8
[~2021-02-28 07:54] MED LIST: LACTATED RINGERS 1,000 ML IV SCH
[2021-02-28 08:28] VITALS: TEMP 97.1
[2021-02-28] MEDS ORDERED: MIDAZOLAM 2 MG/2 ML VIAL IVP ONE (08:31)
[2021-02-28] MEDS ORDERED: LIDOCAINE 1% INJ 10MG/ML (20 ML MDV) ONE (09:11)
[2021-02-28] MEDS ORDERED: PROPOFOL 10 MG/ML 20 ML VIAL IV ONE (09:11)
--- NOTE | 2021-02-28 09:40 | P.PCN ---
Date of Procedure: 02/28/21 Procedure(s) Performed: Brief history: Patient is a pleasant 45-year-old white male scheduled for an elective upper endoscopy as well as colonoscopy as a part of evaluation of epigastric pain, intermittent rectal bleeding and anemia. Procedure performed: Esophagogastroduodenoscopy with biopsy Colonoscopy with snare polypectomy Preoperative diagnosis: Epigastric pain Anemia and intermittent rectal bleeding Anesthesia: MAC Procedure: After informed consent was obtained from the patient was brought into the endoscopy unit and IV sedation was administered by anesthesia under continuous monitoring. Initially upper endoscopy was done. The Olympus GF 160 video endoscope was inserted inserted into the mouth and esophagus intubated without any difficulty and was gradually advanced into the stomach and duodenum and carefully examined. The bulb and second part of the duodenum appeared normal. Biopsies were done from the duodenum to rule out celiac disease The scope was then withdrawn into the stomach adequately insufflated with air and upon careful examination the antrum had mild gastritis and biopsies were done from this area. The body, cardia and fundus appeared normal. The scope was then withdrawn into the esophagus. The GE junction was located at 40 cm to the incisors. It appeared regular with no erythema erosions or ulcerations. Rest of the esophagus appeared normal. Patient tolerated the procedure well. At this time the patient continued to remain sedation. Initial digital rectal examination was normal. Olympus CF 160 video colonoscope was then inserted into the rectum and gradually advanced to the cecum without any difficulty. Careful examination was performed as the scope was gradually being withdrawn. The prep was fair. The cecum, ascending colon, transverse colon, descending colon, appeared normal. In the sigmoid: There was a 2 cm pegylated polyp removed by snare polyp at nd. Rest of the sigmoid colon and rectum appeared normal. Retroflexion was performed in the rectum and small internal hemorrhoids were noted. Patient tolerated the procedure well. Impression: 1. Upper endoscopy revealed mild antral gastritis but no evidence of gastric or esophageal varices 2. Colonoscopy revealed a 2 cm pedunculated distal sigmoid: Polyp status post polypectomy. Rest of the colon appeared normal. Recommendations: Findings of this examination were discussed with the patient as well as his family. He was advised to follow with the biopsy results. If the biopsy reveals adenoma he can have a repeat colonoscopy in 3 years. He will be seen in office in 2 weeks.
[2021-02-28 09:43] VITALS: RESP 16
[2021-02-28 09:58] VITALS: BP 108/66; PULSE 87
== END 2021-02-28 10:24 | disposition home or self-care (01) ==
LOC: ORWHC2ENDO 07:54
PROVIDERS: ATTEND Internal Medicine Gastroenterology
DX: K29.70 Gastritis, unspecified, without bleeding (principal); K31.9 Disease of stomach and duodenum, unspecified; D12.5 Benign neoplasm of sigmoid colon; R10.13 Epigastric pain; D64.9 Anemia, unspecified; I10 Essential (primary) hypertension; K21.9 Gastro-esophageal reflux disease without esophagitis; F17.210 Nicotine dependence, cigarettes, uncomplicated; Z79.899 Other long term (current) drug therapy
CPT/HCPCS: 88305; 45385; 43239; J2250; J2001; J2704

== ENCOUNTER → 2021-05-09 | Outpatient (CLI) | payer OTHER ==
--- NOTE | 2021-05-09 08:49 | US ---
EXAMINATION TYPE: US abdomen limited DATE OF EXAM: 05/09/2021 COMPARISON: Ultrasound abdomen limited December 2020 CLINICAL HISTORY: R94.5 Abnormal Liver Function test. abn labs, no symptoms EXAM MEASUREMENTS: Liver Length: 17.2 cm Gallbladder Wall: 0.2 cm CBD: 0.5 cm Right Kidney: 11.5 x 4.6 x 6.2 cm Spleen: 11.8cm Pancreas: limited views appear wnl Liver: difficult to penetrate Gallbladder: fold noted Evidence for sonographic Addison's sign: no CBD: wnl Right Kidney: wnl Spleen: wnl /Portion of pancreas within normal limits. Visualized portion of liver remains heterogeneously hypere choic. Evaluation for focal masses suboptimal. No surrounding ascites. No new biliary dilatation. Gal lbladder has distended margins. No intraluminal gallstones. Right kidney has no hydronephrosis. Splee n noted not enlarged. IMPRESSION: Findings could reflect diffuse fatty infiltration and/or underlying hepatocellular diseas e. No significant change from prior. Consider imaging guided random biopsy and/or US elastography to further evaluate.
== END | disposition home or self-care (01) ==
LOC: RADUSWWP 06:54
PROVIDERS: ATTEND Internal Medicine Hematology & Oncology
DX: R94.5 Abnormal results of liver function studies (principal)
CPT/HCPCS: 76705

== ENCOUNTER 2021-11-25 14:18 | Inpatient (IN) | payer OTHER ==
[2021-11-25] MEDS ORDERED: ATROPINE SULFATE 0.1 MG/ML 10ML SYRINGE IV STA (14:31)
[2021-11-25] MEDS ORDERED: THIAMINE 100 MG/ML 2 ML VIAL IVP STA (14:39)
--- NOTE | 2021-11-25 14:43 | ED ---
General Adult HPI - General Chief complaint: Altered Mental Status Stated complaint: unresponsive Time Seen by Provider: 11/25/21 14:18 Source: patient, EMS, RN notes reviewed Mode of arrival: EMS Limitations: altered mental status, physical limitation - History of Present Illness Initial comments: Patient is unresponsive 46-year-old male presenting to the emergency department with change in mental status. There is reported history of seizures. Patient is obviously jaundiced. Patient reportedly was last seen ADM yesterday and has been drinking and is bed otherwise. A kwan and provides no history at this time. - Related Data Previous Rx's Medication Instructions Recorded Escitalopram [Lexapro] 20 mg PO DAILY #30 tab 07/30/19 Thiamine [Vitamin B-1] 100 mg PO BID-W/MEALS tab 12/09/20 levETIRAcetam [Keppra] 750 mg PO Q12HR #60 tab 12/09/20 Allergies Allergy/AdvReac Type Severity Reaction Status Date / Time No Known Allergies Allergy Verified 02/28/21 08:28 Review of Systems ROS Statement: Those systems with pertinent positive or pertinent negative responses have been documented in the HPI. ROS Other: All systems not noted in ROS Statement are negative. Limitations: ROS unobtainable due to patients medical condition Past Medical History Past Medical History: GERD/Reflux, GI Bleed, Hypertension, Memory Impairment, Osteoarthritis (OA), Seizure Disorder, Sleep Apnea/CPAP/BIPAP Additional Past Medical History / Comment(s): RT clavicle fracture age 6 AND AGAIN AT AGE 7 OR 8, left knee injury-TORN MENISCUS, Fast heart rate/PALPATATIONS, "I HAVE PASSED BLOOD RECTALLY BUT NEVER HAD IT CHECKED OUT", PT STATED HE WAS DX W/AUTISM, OCD, ADD. "donates plasma twice a week". Last seizure 12/08/20. Anemia. ?kidney/liver problems, unsure of what problems are. Leg and back pain. No appetite, frequent vomiting. History of Any Multi-Drug Resistant Organisms: None Reported Past Surgical History: No Surgical Hx Reported Additional Past Surgical History / Comment(s): Had all teeth extracted. Past Anesthesia/Blood Transfusion Reactions: Motion Sickness, Postoperative Nausea & Vomiting (PONV) Additional Past Anesthesia/Blood Transfusion Reaction / Comment(s): Unknown fa moise hx. "Have a very severe gag reflex, worried about throwing up during throat scope." Past Psychological History: ADD/ADHD, Anxiety, Depression Smoking Status: Current some day smoker Past Alcohol Use History: Daily, Heavy Past Drug Use History: None Reported - Past Family History Father History Unknown: Yes Family Medical History: Cancer Additional Family Medical History / Comment(s): Colon cancer. . Mother History Unknown: Yes Family Medical History: Unable to Obtain Additional Family Medical History / Comment(s): Patient has no contact with his mother or siblings. General Exam Limitations: altered mental status, physical limitation General appearance: alert, other (Jaundice) Head exam: Present: atraumatic Eye exam: Present: normal appearance, EOMI, scleral icterus, other (Pupils dilated and sluggish) Neck exam: Absent: tenderness Respiratory exam: Present: normal lung sounds bilaterally Cardiovascular Exam: Present: bradycardia GI/Abdominal exam: Present: soft. Absent: tenderness Extremities exam: Present: normal inspection Neurological exam: Present: altered Expanded Eye Response: (4) open spontaneously Motor Response: (4) withdraws to pain (Minimal withdrawal) Verbal Response: incomprehensible sounds Psychiatric exam: Present: other (Nonverbal) Skin exam: Present: other (Jaundice) Course Vital Signs 11/25/21 11/25/21 11/25/21 14:19 15:36 15:55 Temperature 84.0 F L 83.7 F L Pulse Rate 32 L 66 66 Respiratory 6 L 18 16 Rate Blood Pressure 140/109 74/30 79/37 O2 Sat by Pulse 85 L 100 Oximetry 11/25/21 16:11 Temperature 84.2 F L Pulse Rate 69 Respiratory 16 Rate Blood Pressure 78/42 O2 Sat by Pulse 99 Oximetry - Reevaluation(s) Reevaluation #1: 11/25/21 15:00 Patient was bradycardic on arrival with heart rate in the 30s. 1 of atropine given with heart rate up to 50. 11/25/21 15:01 Patient was suctioned without much gag reflex. At this point patient was decided to be intubated for further testing and usually production. 11/25/21 15:23 EKG #2 shows wide-complex QRS rhythm. Questionable P waves. QRS 150. QT 526. QTc 520. Normal axis. No acute ST change. 11/25/21 16:05 present and updated. Patient for code. She states patient does have 30 year history of drinking and has not really consumed anything other than ear recently. She states he hardly leaves his room and does not bath. Blood pressure 82 systolic with the Levophed. Abnormal labs reviewed. Patient has already received 2 L of fluid prior to sodium level returned secondary to hypotension. Admitting physician and critical care doctor have been paged. 11/25/21 16:16 Case was discussed with Dr. Kahn who consult for critical care. 11/25/21 16:22 Case also discussed with Dr. Mejia, who will consult. She requests repeat sodium level with probable 3% sodium following that. 11/25/21 16:29 Case also discussed with Dr. Callahan, who will admit covering Dr. Garcia. 11/25/21 16:29 There is concern for sepsis diagnosed at 1600. Blood culture and lactic acid and IV antibiotics have all been ordered. EKG Findings - EKG Comments: EKG Findings:: Wide-complex irregular rhythm with rate of 59. QRS 150. QT 448. QTC 443. Normal axis. No acute ST change. Procedures - Procedures Initial comment: Blood draw right femoral vein. Area cleansed with Betadine. 22-gauge needle and 20 mL syringe with withdrawal of blood. No complications - ABG Interpretation Ph: 6.88 PCO2: 38.5 PO2: 400 Bicarbonate: 7.3 Interpretation: metabolic alkalosis - Central Line Placement Right Femoral Consent Obtained: verbal consent Prep: mask, gown, gloves Central Line Prep: Chlorhexidine scrub Ultrasound Used for Placement: No Central Line Lumen Inserted: triple Central Line Position: good blood return, all ports aspirated, flushed, capped, sutured in place with 3-0 nylon Dressing Applied: Tegaderm Patient Tolerated Procedure: well, no complications Complications: none - Intubation Sedative: Versed Mg Given: 3 Paralytic: Succinylcholine Mg Given: 100 Laryngoscope: Page Size: 3 ET Tube Size: 7.5 Tube Secured Depth (cm): 22 Tube Secured Location: lips Tube Placement Confirmation: visualized tube passing through cords, equal breath sounds bilaterally, no breath sounds over epigastrium, confirmation by capnometry Patient Tolerated Procedure: well, no complications Intubation Complications: none, other (Note: cords were edematous) Medical Decision Making - Lab Data Result diagrams: 11/25/21 15:01 11/25/21 15:01 Lab Results 11/25/21 11/25/21 11/25/21 Range/Units 15:01 15:01 15:01 WBC 19.2 H (3.8-10.6) k/uL RBC 3.17 L (4.30-5.90) m/uL Hgb 11.4 L (13.0-17.5) gm/dL Hct 36.2 L (39.0-53.0) % MCV 114.4 H (80.0-100.0) fL MCH 35.9 H (25.0-35.0) pg MCHC 31.4 (31.0-37.0) g/dL RDW 14.6 (11.5-15.5) % Plt Count (150-450) k/uL MPV 12.1 Neutrophils % 67 % Lymphocytes % 24 % Monocytes % 5 % Eosinophils % 1 % Basophils % 1 % Neutrophils # 13.0 H (1.3-7.7) k/uL Lymphocytes # 4.6 (1.0-4.8) k/uL Monocytes # 1.0 (0-1.0) k/uL Eosinophils # 0.1 (0-0.7) k/uL Basophils # 0.2 (0-0.2) k/uL Manual Slide Review Performed Hypochromasia Marked Poikilocytosis (manual Present Macrocytosis Marked A Crenated Cell Present PT 34.7 H (9.0-12.0) sec INR 3.6 H (<1.2) APTT 118.5 H* (22.0-30.0) sec Sample Site ABG pH (7.35-7.45) ABG pCO2 (35-45) mmHg ABG pO2 (83-108) mmHg ABG HCO3 (21-25) mmol/L ABG Total CO2 (19-24) mmol/L ABG O2 Saturation (94-97) % ABG Base Excess mmol/L Hamzah Test FiO2 % Sodium (137-145) mmol/L Potassium (3.5-5.1) mmol/L Chloride (98-107) mmol/L Carbon Dioxide (22-30) mmol/L Anion Gap mmol/L BUN (9-20) mg/dL Creatinine (0.66-1.25) mg/dL Est GFR (CKD-EPI)AfAm (>60 ml/min/1.73 sqM) Est GFR (CKD-EPI)NonAf (>60 ml/min/1.73 sqM) Glucose (74-99) mg/dL POC Glucose (mg/dL) (75-99) mg/dL POC Glu Platform Software Engineer ID Plasma Lactic Acid Kvng (0.7-2.0) mmol/L Calcium (8.4-10.2) mg/dL Total Bilirubin (0.2-1.3) mg/dL AST (17-59) U/L ALT (4-49) U/L Alkaline Phosphatase (38-126) U/L Ammonia (<30) umol/L Creatine Kinase (55-170) U/L Troponin I (0.000-0.034) ng/mL Total Protein (6.3-8.2) g/dL Albumin (3.5-5.0) g/dL Urine Color Dark Brown Urine Appearance Turbid (Clear) Urine pH 6.0 (5.0-8.0) Ur Specific [place] 1.028 (1.001-1.035) Urine Protein 1+ H (Negative) Urine Glucose (UA) Negative (Negative) Urine Ketones Negative (Negative) Urine Blood Negative (Negative) Urine Nitrite Negative (Negative) Urine Bilirubin 4+ H (Negative) Urine Urobilinogen 8.0 (<2.0) mg/dL Ur Leukocyte Esterase Negative (Negative) Urine WBC 4 (0-5) /hpf Amorphous Sediment Rare H (None) /hpf Urine Bacteria Many H (None) /hpf Hyaline Casts 2 (0-2) /lpf Urine Mucus Few H (None) /hpf Urine Opiates Screen Not Detected (NotDetected) Ur Oxycodone Screen Not Detected (NotDetected) Urine Methadone Screen Not Detected (NotDetected) Ur Propoxyphene Screen Not Detected (NotDetected) Ur Barbiturates Screen Not Detected (NotDetected) U Tricyclic Antidepress Not Detected (NotDetected) Ur Phencyclidine Scrn Not Detected (NotDetected) Ur Amphetamines Screen Not Detected (NotDetected) U Methamphetamines Scrn Not Detected (NotDetected) U Benzodiazepines Scrn Not Detected (NotDetected) Urine Cocaine Screen Not Detected (NotDetected) U Marijuana (THC) Screen Not Detected (NotDetected) Serum Alcohol mg/dL Coronavirus (PCR) (Not Detectd) 11/25/21 11/25/21 11/25/21 Range/Units 15:01 15:01 15:01 WBC (3.8-10.6) k/uL RBC (4.30-5.90) m/uL Hgb (13.0-17.5) gm/dL Hct (39.0-53.0) % MCV (80.0-100.0) fL MCH (25.0-35.0) pg MCHC (31.0-37.0) g/dL RDW (11.5-15.5) % Plt Count (150-450) k/uL MPV Neutrophils % % Lymphocytes % % Monocytes % % Eosinophils % % Basophils % % Neutrophils # (1.3-7.7) k/uL Lymphocytes # (1.0-4.8) k/uL Monocytes # (0-1.0) k/uL Eosinophils # (0-0.7) k/uL Basophils # (0-0.2) k/uL Manual Slide Review Hypochromasia Poikilocytosis (manual Macrocytosis Crenated Cell PT (9.0-12.0) sec INR (<1.2) APTT (22.0-30.0) sec Sample Site ABG pH (7.35-7.45) ABG pCO2 (35-45) mmHg ABG pO2 (83-108) mmHg ABG HCO3 (21-25) mmol/L ABG Total CO2 (19-24) mmol/L ABG O2 Saturation (94-97) % ABG Base Excess mmol/L Hamzah Test FiO2 % Sodium 103 L* (137-145) mmol/L Potassium 6.0 H (3.5-5.1) mmol/L Chloride 74 L* (98-107) mmol/L Carbon Dioxide 10 L (22-30) mmol/L Anion Gap 19 mmol/L BUN 7 L (9-20) mg/dL Creatinine 1.55 H (0.66-1.25) mg/dL Est GFR (CKD-EPI)AfAm 61 (>60 ml/min/1.73 sqM) Est GFR (CKD-EPI)NonAf 53 (>60 ml/min/1.73 sqM) Glucose 38 L* (74-99) mg/dL POC Glucose (mg/dL) (75-99) mg/dL POC Glu Platform Software Engineer ID Plasma Lactic Acid Kvng 15.1 H* (0.7-2.0) mmol/L Calcium 7.0 L (8.4-10.2) mg/dL Total Bilirubin 16.4 H* (0.2-1.3) mg/dL AST 714 H (17-59) U/L ALT 102 H (4-49) U/L Alkaline Phosphatase 151 H (38-126) U/L Ammonia 265 H (<30) umol/L Creatine Kinase 22367 H* (55-170) U/L Troponin I 0.014 (0.000-0.034) ng/mL Total Protein 5.8 L (6.3-8.2) g/dL Albumin 2.4 L (3.5-5.0) g/dL Urine Color Urine Appearance (Clear) Urine pH (5.0-8.0) Ur Specific [place] (1.001-1.035) Urine Protein (Negative) Urine Glucose (UA) (Negative) Urine Ketones (Negative) Urine Blood (Negative) Urine Nitrite (Negative) Urine Bilirubin (Negative) Urine Urobilinogen (<2.0) mg/dL Ur Leukocyte Esterase (Negative) Urine WBC (0-5) /hpf Amorphous Sediment (None) /hpf Urine Bacteria (None) /hpf Hyaline Casts (0-2) /lpf Urine Mucus (None) /hpf Urine Opiates Screen (NotDetected) Ur Oxycodone Screen (NotDetected) Urine Methadone Screen (NotDetected) Ur Propoxyphene Screen (NotDetected) Ur Barbiturates Screen (NotDetected) U Tricyclic Antidepress (NotDetected) Ur Phencyclidine Scrn (NotDetected) Ur Amphetamines Screen (NotDetected) U Methamphetamines Scrn (NotDetected) U Benzodiazepines Scrn (NotDetected) Urine Cocaine Screen (NotDetected) U Marijuana (THC) Screen (NotDetected) Serum Alcohol 112 mg/dL Coronavirus (PCR) (Not Detectd) 11/25/21 11/25/21 11/25/21 Range/Units 15:41 16:00 16:16 WBC (3.8-10.6) k/uL RBC (4.30-5.90) m/uL Hgb (13.0-17.5) gm/dL Hct (39.0-53.0) % MCV (80.0-100.0) fL MCH (25.0-35.0) pg MCHC (31.0-37.0) g/dL RDW (11.5-15.5) % Plt Count (150-450) k/uL MPV Neutrophils % % Lymphocytes % % Monocytes % % Eosinophils % % Basophils % % Neutrophils # (1.3-7.7) k/uL Lymphocytes # (1.0-4.8) k/uL Monocytes # (0-1.0) k/uL Eosinophils # (0-0.7) k/uL Basophils # (0-0.2) k/uL Manual Slide Review Hypochromasia Poikilocytosis (manual Macrocytosis Crenated Cell PT (9.0-12.0) sec INR (<1.2) APTT (22.0-30.0) sec Sample Site Right Radial ABG pH 6.89 L* (7.35-7.45) ABG pCO2 39 (35-45) mmHg ABG pO2 >400 H (83-108) mmHg ABG HCO3 7 L* (21-25) mmol/L ABG Total CO2 9 L (19-24) mmol/L ABG O2 Saturation 99.7 H (94-97) % ABG Base Excess -25.8 mmol/L Hamzah Test Yes FiO2 100 % Sodium (137-145) mmol/L Potassium (3.5-5.1) mmol/L Chloride (98-107) mmol/L Carbon Dioxide (22-30) mmol/L Anion Gap mmol/L BUN (9-20) mg/dL Creatinine (0.66-1.25) mg/dL Est GFR (CKD-EPI)AfAm (>60 ml/min/1.73 sqM) Est GFR (CKD-EPI)NonAf (>60 ml/min/1.73 sqM) Glucose (74-99) mg/dL POC Glucose (mg/dL) 201 H (75-99) mg/dL POC Glu Platform Software Engineer ID Laurel Elkins Plasma Lactic Acid Kvng (0.7-2.0) mmol/L Calcium (8.4-10.2) mg/dL Total Bilirubin (0.2-1.3) mg/dL AST (17-59) U/L ALT (4-49) U/L Alkaline Phosphatase (38-126) U/L Ammonia (<30) umol/L Creatine Kinase (55-170) U/L Troponin I (0.000-0.034) ng/mL Total Protein (6.3-8.2) g/dL Albumin (3.5-5.0) g/dL Urine Color Urine Appearance (Clear) Urine pH (5.0-8.0) Ur Specific [place] (1.001-1.035) Urine Protein (Negative) Urine Glucose (UA) (Negative) Urine Ketones (Negative) Urine Blood (Negative) Urine Nitrite (Negative) Urine Bilirubin (Negative) Urine Urobilinogen (<2.0) mg/dL Ur Leukocyte Esterase (Negative) Urine WBC (0-5) /hpf Amorphous Sediment (None) /hpf Urine Bacteria (None) /hpf Hyaline Casts (0-2) /lpf Urine Mucus (None) /hpf Urine Opiates Screen (NotDetected) Ur Oxycodone Screen (NotDetected) Urine Methadone Screen (NotDetected) Ur Propoxyphene Screen (NotDetected) Ur Barbiturates Screen (NotDetected) U Tricyclic Antidepress (NotDetected) Ur Phencyclidine Scrn (NotDetected) Ur Amphetamines Screen (NotDetected) U Methamphetamines Scrn (NotDetected) U Benzodiazepines Scrn (NotDetected) Urine Cocaine Screen (NotDetected) U Marijuana (THC) Screen (NotDetected) Serum Alcohol mg/dL Coronavirus (PCR) Not Detected (Not Detectd) - Radiology Data Radiology results: report reviewed (Computed tomography scan of the brain no acute process. Prominent CSF left middle cranial fossa. Possible encephalomalacia or system. Prior. Partial opacification of sinuses.), image reviewed (Chest x-ray shows endotracheal and OG tube in place. Haziness rate diaphragm, possible atelectasis) Critical Care Time Critical Care Time: Yes Total Critical Care Time: 71 Disposition Clinical Impression: Hypotension, Respiratory failure, Bradycardia, Hypothermia, Coagulopathy, Hyponatremia, Hepatic encephalopathy, Rhabdomyolysis, Septic shock Disposition: ADMITTED IP TO [facility] Condition: Critical Is patient prescribed a controlled substance at d/c from ED?: No Referrals: Marilou Graves MD [Primary Care Provider] - 1-2 days Decision Time: 15:59
[2021-11-25] MEDS ORDERED: LORazepam 2 MG/ML INJ IV PRN ×2 (14:59)
[2021-11-25 15:34] LABS: Amorphous Sediment,Urine Rare /hpf; Appearance,Urine Turbid (Clear); Bacteria,Urine Many /hpf; Bilirubin,Urine 4+ (Negative); Blood,Urine Negative (Negative); Color,Urine Dark Brown; Glucose,Urine (UA) Negative (Negative); Hyaline Casts,Urine 2 /lpf (0-2); Ketones,Urine Negative (Negative); Leukocyte Esterase,Urine Negative (Negative); Mucus,Urine Few /hpf; Nitrite,Urine Negative (Negative); Protein,Urine 1+ (Negative); Specific Gravity,Urine 1.028 (1.001-1.035); WBC,Urine 4 /hpf (0-5)
[2021-11-25 15:37] LABS: Amphetamine Screen,Urine Not Detected (NotDetected); Barbiturate Screen,Urine Not Detected (NotDetected); Benzodiazepines Screen,Urine Not Detected (NotDetected); Cocaine Screen,Urine Not Detected (NotDetected); Methadone Screen, Urine Not Detected (NotDetected); Opiate Screen,Urine Not Detected (NotDetected); Oxycodone Screen, Urine Not Detected (NotDetected); Phencyclidine Screen,Urine Not Detected (NotDetected); Tricyclic Antidepressant,Urine Not Detected (NotDetected); Urn Cannabinoid Scrn Not Detected (NotDetected)
--- NOTE | 2021-11-25 15:38 | CT ---
EXAMINATION TYPE: CT brain wo con DATE OF EXAM: 11/25/2021 COMPARISON: CT brain 12/08/2020 HISTORY: Altered mental status. CT DLP: 1217.4 mGycm. Automated Exposure Control for Dose Reduction was Utilized. TECHNIQUE: Multiple contiguous axial CT images of the head were performed from the skull base through the vertex without the administration of intravenous contrast. 2-D sagittal and coronal reformats we re obtained. FINDINGS: No acute intracranial hemorrhage, mass effect, or midline shift. The ventricles and sulci are within normal limits in size. Keller-white differentiation is preserved. No CT evidence of acute l arge vessel territorial ischemia. Mild burden of decreased attenuation within the periventricular whi te matter likely sequela of chronic small vessel ischemic change. Mildly prominent CSF within the lef t middle cranial fossa. Findings may relate to underlying arachnoid cyst or encephalomalacia. Calvarium appears intact. Partial opacification of the paranasal sinuses and nasal cavities. Mastoid air cells are clear. Bilateral globes and orbits are symmetric and unremarkable. IMPRESSION: 1. No acute intracranial process. 2. Mildly prominent CSF within the left middle cranial fossa. Findings may relate to arachnoid cyst o r encephalomalacia which appears unchanged from prior. This can be further evaluated with MRI of the brain if clinically indicated. 3. Partial opacification of the paranasal sinuses and nasal cavities. Correlate for sinus disease.
[2021-11-25 15:41] LABS: Albumin 2.4 g/dL (3.5-5.0); Total Protein 5.8 g/dL (6.3-8.2)
[2021-11-25 15:49] LABS: Basophils # (A) 0.2 k/uL (0-0.2); Basophils % (A) 1 %; Eosinophils # (A) 0.1 k/uL (0-0.7); Eosinophils % (A) 1 %; HCT 36.2 % (39.0-53.0); HGB 11.4 gm/dL (13.0-17.5); Hypochromasia Marked; Lymphocytes # (A) 4.6 k/uL (1.0-4.8); Lymphocytes % (A) 24 %; MCH 35.9 pg (25.0-35.0); MCHC 31.4 g/dL (31.0-37.0); MCV 114.4 fL (80.0-100.0); Macrocytosis Marked; Mean Platelet Volume 12.1; Monocytes % (A) 5 %; Neutrophils % (A) 67 %; RBC 3.17 m/uL (4.30-5.90); RDW 14.6 % (11.5-15.5); WBC 19.2 k/uL (3.8-10.6)
--- NOTE | 2021-11-25 15:49 | XR ---
EXAMINATION TYPE: XR chest 1V portable DATE OF EXAM: 11/25/2021 COMPARISON: Chest radiograph 01/13/2020 HISTORY: Unresponsive, altered mental status TECHNIQUE: Single frontal view of the chest is obtained. FINDINGS: Endotracheal tube is present with tip lying approximately 2 cm above the mery. Enteric tube appears subdiaphragmatic with tip overlying the left upper abdomen. Cardiomediastinal silhouette appears within normal limits. Elevation of the right hemidiaphragm relative to the left with hazy right-sided airspace opacity and right basilar opacity, which may relate to underlying atelectasis. Left lung appears clear. No defini te pleural effusion or pneumothorax. IMPRESSION: 1. Endotracheal and enteric tubes appear in satisfactory position. 2. Elevation of the right hemidiaphragm with hazy right airspace opacity and right basilar airspace o pacity. Findings may be secondary to atelectasis.
[2021-11-25 15:51] LABS: INR 3.6 (<1.2); Prothrombin Time 34.7 sec (9.0-12.0)
[2021-11-25 15:54] LABS: Partial Thromboplastin Time 118.5 sec (22.0-30.0)
[2021-11-25 15:57] LABS: Total Bilirubin 16.4 mg/dL (0.2-1.3)
[2021-11-25 16:01] LABS: Lactic Acid, Venous 15.1 mmol/L (0.7-2.0)
[2021-11-25] MEDS ORDERED: DEXTROSE 50% SYRINGE 50 ML IVP STA ×2 (16:02→23:37)
[2021-11-25] MEDS ORDERED: MIDAZOLAM 1 MG/ML 5 ML VIAL IV STA (16:03)
[2021-11-25] MEDS ORDERED: SUCCINYLCHOLINE CHLORIDE VIAL 200 MG/10 ML VIAL IV STA (16:04)
[2021-11-25 16:06] LABS: Crenated RBC Present; Poikilocytosis (M) Present
[2021-11-25] MEDS ORDERED: LACTULOSE 20 GM/30 ML CUP PO ONE (16:06)
[2021-11-25 16:07] LABS: ABG Base Excess -25.8 mmol/L; ABG Oxygen Saturation 99.7 % (94-97); ABG PCO2 39 mmHg (35-45); ABG PO2 >400 mmHg (83-108); ABG TCO2 9 mmol/L (19-24); Allen Test Performed? Yes
[2021-11-25 16:15] LABS: ABG HCO3 7 mmol/L (21-25); ABG PH 6.89 (7.35-7.45)
[2021-11-25] MEDS ORDERED: SODIUM BICARB 8.4% 50 ML SYR (1 MEQ/ML) IV STA ×2 (16:15→21:41)
[2021-11-25] MEDS: NOREPINEPHRINE 32 MG in SODIUM CHLORIDE 0.9% 218 ML IV ONE (16:15)
[2021-11-25 16:18] LABS: Glucose,Whole Blood 201 mg/dL (75-99)
[2021-11-25] MEDS ORDERED: cefTRIAXone IN SWFI 1,000 MG/10 ML SYRINGE IVP STA (16:18)
[2021-11-25] MEDS ORDERED: NALOXONE 0.4 MG/ML 1 ML VIAL IV PRN (16:30)
--- NOTE | 2021-11-25 16:33 | ED ---
Medical Decision Making - Lab Data Result diagrams: 11/25/21 15:01 11/25/21 15:01 Lab Results 11/25/21 11/25/21 11/25/21 Range/Units 15:01 15: 15:01 WBC 19.2 H (3.8-10.6) k/uL RBC 3.17 L (4.30-5.90) m/uL Hgb 11.4 L (13.0-17.5) gm/dL Hct 36.2 L (39.0-53.0) % MCV 114.4 H (80.0-100.0) fL MCH 35.9 H (25.0-35.0) pg MCHC 31.4 (31.0-37.0) g/dL RDW 14.6 (11.5-15.5) % Plt Count (150-450) k/uL MPV 12.1 Neutrophils % 67 % Lymphocytes % 24 % Monocytes % 5 % Eosinophils % 1 % Basophils % 1 % Neutrophils # 13.0 H (1.3-7.7) k/uL Lymphocytes # 4.6 (1.0-4.8) k/uL Monocytes # 1.0 (0-1.0) k/uL Eosinophils # 0.1 (0-0.7) k/uL Basophils # 0.2 (0-0.2) k/uL Manual Slide Review Performed Hypochromasia Marked Poikilocytosis (manual Present Macrocytosis Marked A Crenated Cell Present PT 34.7 H (9.0-12.0) sec INR 3.6 H (<1.2) APTT 118.5 H* (22.0-30.0) sec Sample Site ABG pH (7.35-7.45) ABG pCO2 (35-45) mmHg ABG pO2 (83-108) mmHg ABG HCO3 (21-25) mmol/L ABG Total CO2 (19-24) mmol/L ABG O2 Saturation (94-97) % ABG Base Excess mmol/L Hamzah Test FiO2 % Sodium (137-145) mmol/L Potassium (3.5-5.1) mmol/L Chloride (98-107) mmol/L Carbon Dioxide (22-30) mmol/L Anion Gap mmol/L BUN (9-20) mg/dL Creatinine (0.66-1.25) mg/dL Est GFR (CKD-EPI)AfAm (>60 ml/min/1.73 sqM) Est GFR (CKD-EPI)NonAf (>60 ml/min/1.73 sqM) Glucose (74-99) mg/dL POC Glucose (mg/dL) (75-99) mg/dL POC Glu Quill Reamer ID Plasma Lactic Acid Kvng (0.7-2.0) mmol/L Calcium (8.4-10.2) mg/dL Total Bilirubin (0.2-1.3) mg/dL AST (17-59) U/L ALT (4-49) U/L Alkaline Phosphatase (38-126) U/L Ammonia (<30) umol/L Creatine Kinase (55-170) U/L Troponin I (0.000-0.034) ng/mL Total Protein (6.3-8.2) g/dL Albumin (3.5-5.0) g/dL Urine Color Dark Brown Urine Appearance Turbid (Clear) Urine pH 6.0 (5.0-8.0) Ur Specific [place] 1.028 (1.001-1.035) Urine Protein 1+ H (Negative) Urine Glucose (UA) Negative (Negative) Urine Ketones Negative (Negative) Urine Blood Negative (Negative) Urine Nitrite Negative (Negative) Urine Bilirubin 4+ H (Negative) Urine Urobilinogen 8.0 (<2.0) mg/dL Ur Leukocyte Esterase Negative (Negative) Urine WBC 4 (0-5) /hpf Amorphous Sediment Rare H (None) /hpf Urine Bacteria Many H (None) /hpf Hyaline Casts 2 (0-2) /lpf Urine Mucus Few H (None) /hpf Urine Opiates Screen Not Detected (NotDetected) Ur Oxycodone Screen Not Detected (NotDetected) Urine Methadone Screen Not Detected (NotDetected) Ur Propoxyphene Screen Not Detected (NotDetected) Ur Barbiturates Screen Not Detected (NotDetected) U Tricyclic Antidepress Not Detected (NotDetected) Ur Phencyclidine Scrn Not Detected (NotDetected) Ur Amphetamines Screen Not Detected (NotDetected) U Methamphetamines Scrn Not Detected (NotDetected) U Benzodiazepines Scrn Not Detected (NotDetected) Urine Cocaine Screen Not Detected (NotDetected) U Marijuana (THC) Screen Not Detected (NotDetected) Serum Alcohol mg/dL Coronavirus (PCR) (Not Detectd) 11/25/21 11/25/21 11/25/21 Range/Units 15:01 15:01 15:01 WBC (3.8-10.6) k/uL RBC (4.30-5.90) m/uL Hgb (13.0-17.5) gm/dL Hct (39.0-53.0) % MCV (80.0-100.0) fL MCH (25.0-35.0) pg MCHC (31.0-37.0) g/dL RDW (11.5-15.5) % Plt Count (150-450) k/uL MPV Neutrophils % % Lymphocytes % % Monocytes % % Eosinophils % % Basophils % % Neutrophils # (1.3-7.7) k/uL Lymphocytes # (1.0-4.8) k/uL Monocytes # (0-1.0) k/uL Eosinophils # (0-0.7) k/uL Basophils # (0-0.2) k/uL Manual Slide Review Hypochromasia Poikilocytosis (manual Macrocytosis Crenated Cell PT (9.0-12.0) sec INR (<1.2) APTT (22.0-30.0) sec Sample Site ABG pH (7.35-7.45) ABG pCO2 (35-45) mmHg ABG pO2 (83-108) mmHg ABG HCO3 (21-25) mmol/L ABG Total CO2 (19-24) mmol/L ABG O2 Saturation (94-97) % ABG Base Excess mmol/L Hamzah Test FiO2 % Sodium 103 L* (137-145) mmol/L Potassium 6.0 H (3.5-5.1) mmol/L Chloride 74 L* (98-107) mmol/L Carbon Dioxide 10 L (22-30) mmol/L Anion Gap 19 mmol/L BUN 7 L (9-20) mg/dL Creatinine 1.55 H (0.66-1.25) mg/dL Est GFR (CKD-EPI)AfAm 61 (>60 ml/min/1.73 sqM) Est GFR (CKD-EPI)NonAf 53 (>60 ml/min/1.73 sqM) Glucose 38 L* (74-99) mg/dL POC Glucose (mg/dL) (75-99) mg/dL POC Glu Quill Reamer ID Plasma Lactic Acid Kvng 15.1 H* (0.7-2.0) mmol/L Calcium 7.0 L (8.4-10.2) mg/dL Total Bilirubin 16.4 H* (0.2-1.3) mg/dL AST 714 H (17-59) U/L ALT 102 H (4-49) U/L Alkaline Phosphatase 151 H (38-126) U/L Ammonia 265 H (<30) umol/L Creatine Kinase 53078 H* (55-170) U/L Troponin I 0.014 (0.000-0.034) ng/mL Total Protein 5.8 L (6.3-8.2) g/dL Albumin 2.4 L (3.5-5.0) g/dL Urine Color Urine Appearance (Clear) Urine pH (5.0-8.0) Ur Specific [place] (1.001-1.035) Urine Protein (Negative) Urine Glucose (UA) (Negative) Urine Ketones (Negative) Urine Blood (Negative) Urine Nitrite (Negative) Urine Bilirubin (Negative) Urine Urobilinogen (<2.0) mg/dL Ur Leukocyte Esterase (Negative) Urine WBC (0-5) /hpf Amorphous Sediment (None) /hpf Urine Bacteria (None) /hpf Hyaline Casts (0-2) /lpf Urine Mucus (None) /hpf Urine Opiates Screen (NotDetected) Ur Oxycodone Screen (NotDetected) Urine Methadone Screen (NotDetected) Ur Propoxyphene Screen (NotDetected) Ur Barbiturates Screen (NotDetected) U Tricyclic Antidepress (NotDetected) Ur Phencyclidine Scrn (NotDetected) Ur Amphetamines Screen (NotDetected) U Methamphetamines Scrn (NotDetected) U Benzodiazepines Scrn (NotDetected) Urine Cocaine Screen (NotDetected) U Marijuana (THC) Screen (NotDetected) Serum Alcohol 112 mg/dL Coronavirus (PCR) (Not Detectd) 11/25/21 11/25/21 11/25/21 Range/Units 15:41 16:00 16:16 WBC (3.8-10.6) k/uL RBC (4.30-5.90) m/uL Hgb (13.0-17.5) gm/dL Hct (39.0-53.0) % MCV (80.0-100.0) fL MCH (25.0-35.0) pg MCHC (31.0-37.0) g/dL RDW (11.5-15.5) % Plt Count (150-450) k/uL MPV Neutrophils % % Lymphocytes % % Monocytes % % Eosinophils % % Basophils % % Neutrophils # (1.3-7.7) k/uL Lymphocytes # (1.0-4.8) k/uL Monocytes # (0-1.0) k/uL Eosinophils # (0-0.7) k/uL Basophils # (0-0.2) k/uL Manual Slide Review Hypochromasia Poikilocytosis (manual Macrocytosis Crenated Cell PT (9.0-12.0) sec INR (<1.2) APTT (22.0-30.0) sec Sample Site Right Radial ABG pH 6.89 L* (7.35-7.45) ABG pCO2 39 (35-45) mmHg ABG pO2 >400 H (83-108) mmHg ABG HCO3 7 L* (21-25) mmol/L ABG Total CO2 9 L (19-24) mmol/L ABG O2 Saturation 99.7 H (94-97) % ABG Base Excess -25.8 mmol/L Hamzah Test Yes FiO2 100 % Sodium (137-145) mmol/L Potassium (3.5-5.1) mmol/L Chloride (98-107) mmol/L Carbon Dioxide (22-30) mmol/L Anion Gap mmol/L BUN (9-20) mg/dL Creatinine (0.66-1.25) mg/dL Est GFR (CKD-EPI)AfAm (>60 ml/min/1.73 sqM) Est GFR (CKD-EPI)NonAf (>60 ml/min/1.73 sqM) Glucose (74-99) mg/dL POC Glucose (mg/dL) 201 H (75-99) mg/dL POC Glu Quill Reamer ID Laurel Elkins Plasma Lactic Acid Kvng (0.7-2.0) mmol/L Calcium (8.4-10.2) mg/dL Total Bilirubin (0.2-1.3) mg/dL AST (17-59) U/L ALT (4-49) U/L Alkaline Phosphatase (38-126) U/L Ammonia (<30) umol/L Creatine Kinase (55-170) U/L Troponin I (0.000-0.034) ng/mL Total Protein (6.3-8.2) g/dL Albumin (3.5-5.0) g/dL Urine Color Urine Appearance (Clear) Urine pH (5.0-8.0) Ur Specific [place] (1.001-1.035) Urine Protein (Negative) Urine Glucose (UA) (Negative) Urine Ketones (Negative) Urine Blood (Negative) Urine Nitrite (Negative) Urine Bilirubin (Negative) Urine Urobilinogen (<2.0) mg/dL Ur Leukocyte Esterase (Negative) Urine WBC (0-5) /hpf Amorphous Sediment (None) /hpf Urine Bacteria (None) /hpf Hyaline Casts (0-2) /lpf Urine Mucus (None) /hpf Urine Opiates Screen (NotDetected) Ur Oxycodone Screen (NotDetected) Urine Methadone Screen (NotDetected) Ur Propoxyphene Screen (NotDetected) Ur Barbiturates Screen (NotDetected) U Tricyclic Antidepress (NotDetected) Ur Phencyclidine Scrn (NotDetected) Ur Amphetamines Screen (NotDetected) U Methamphetamines Scrn (NotDetected) U Benzodiazepines Scrn (NotDetected) Urine Cocaine Screen (NotDetected) U Marijuana (THC) Screen (NotDetected) Serum Alcohol mg/dL Coronavirus (PCR) Not Detected (Not Detectd) Disposition Clinical Impression: Hypotension, Respiratory failure, Bradycardia, Hypothermia, Coagulopathy, Hyponatremia, Hepatic encephalopathy, Rhabdomyolysis, Septic shock Disposition: ADMITTED IP TO THIS HOSP Condition: Critical Is patient prescribed a controlled substance at d/c from ED?: No Referrals: Marilou Graves MD [Primary Care Provider] - 1-2 days Procedures - Sepsis Sepsis Focused Exam #1 Time Sepsis Criteria Met: 16:00 Sepsis Focused Exam Date: 11/25/21 Sepsis Focused Exam Time: 16:33 Sepsis Focused Exam Complete: Yes Vital Signs & RN Notes Reviewed: Yes Capillary Refill: < 2 Seconds: Fingers, Toes Peripheral Pulses: Normal: Radial (R), Radial (L), Dorsalis Pedis (R), Dorsalis Pedis (L) Skin Color: Jaundice Respiratory Exam: normal lung sounds Cardiovascular Exam: regular rate, normal rhythm
[2021-11-25] MEDS: PIPERACILLIN-TAZOBACTAM 3.375 GM in SODIUM CHLORIDE 0.9% 100 ML IVPB SCH (16:55)
[2021-11-25] MEDS: SODIUM CHLORIDE 0.9% 1,000 ML IV SCH ×2 (16:56→23:10)
[2021-11-25 17:58] LABS: Glucose,Whole Blood 140 mg/dL (75-99)
[2021-11-25] MEDS ORDERED: DEXTROSE 5% IN WATER 1,000 ML IV SCH (18:30)
[2021-11-25] MEDS ORDERED: SODIUM CHLORIDE 3%(HYPERTONIC) 500 ML IV SCH (18:30)
--- NOTE | 2021-11-25 18:46 | P.HPIM ---
History of Present Illness H&P Date: 11/25/21 Chief Complaint: Unresponsiveness 46-year-old male patient, unresponsive, brought into ED with altered mental status; patient is intubated and unable to provide any history; according to records patient is reported to have history of seizures; was present in ED and reported that patient had 30 years history of alcohol abuse; accordingly the patient hardly leaves his room and remains in bed On arrival to ED patient was found to be bradycardic with heart rate in 30s; patient was given atropine which improved after to 50; EKG revealed wide complex QRS with no acute changes; systolic blood pressure was in 80s; patient was placed on Levophed Blood work reveals a WBC of 19.2, hemoglobin 11.4, PTT of 34.7, INR of 3.6 and PTT of 108.5; blood gases reveal pH of 6.89, pCO2 of 39, pO2 of 400 and bicarb of 7; sodium 101, potassium 6.0, BUN/creatinine of 7/1.55; blood glucose of 38; lactic acid level of 15.1; CK of 25,791; UA is positive for proteins and bilirubin; ammonia level of 265; Computed tomography scan of the brain no acute process. Prominent CSF left middle cranial fossa. Possible encephalomalacia or system. Prior. Partial opacification of sinuses; Chest x-ray shows endotracheal and OG tube in place. Haziness rate diaphragm, possible atelectasis) Patient was intubated in ED; case discussed with pickling tank operator Dr. Femi elias and nephrology Dr. Mejia; patient is recommended to be admitted to ICU; nephrology recommended repeat sodium level with plans to start patient on 3% hypertonic saline Patient is started on IV antibiotics and blood cultures obtained Review of Systems ROS unobtainable: due to endotracheal tube Past Medical History Past Medical History: GERD/Reflux, GI Bleed, Hypertension, Memory Impairment, Osteoarthritis (OA), Seizure Disorder, Sleep Apnea/CPAP/BIPAP Additional Past Medical History / Comment(s): RT clavicle fracture age 6 AND AGAIN AT AGE 7 OR 8, left knee injury-TORN MENISCUS, Fast heart rate/PALPATATIONS, "I HAVE PASSED BLOOD RECTALLY BUT NEVER HAD IT CHECKED OUT", PT STATED HE WAS DX W/AUTISM, OCD, ADD. "donates plasma twice a week". Last seizure 12/08/20. Anemia. ?kidney/liver problems, unsure of what problems are. Leg and back pain. No appetite, frequent vomiting. History of Any Multi-Drug Resistant Organisms: None Reported Past Surgical History: No Surgical Hx Reported Additional Past Surgical History / Comment(s): Had all teeth extracted. Past Anesthesia/Blood Transfusion Reactions: Motion Sickness, Postoperative Nausea & Vomiting (PONV) Additional Past Anesthesia/Blood Transfusion Reaction / Comment(s): Unknown family hx. "Have a very severe gag reflex, worried about throwing up during throat scope." Past Psychological History: ADD/ADHD, Anxiety, Depression Smoking Status: Current some day smoker Past Alcohol Use History: Daily, Heavy Past Drug Use History: None Reported - Past Family History Father History Unknown: Yes Family Medical History: Cancer Additional Family Medical History / Comment(s): Colon cancer. . Mother History Unknown: Yes Family Medical History: Unable to Obtain Additional Family Medical History / Comment(s): Patient has no contact with his mother or siblings. Medications and Allergies Home Medications Medication Instructions Recorded Confirmed Type Acetaminophen/Diphenhydramine 1 tab PO HS PRN 11/25/21 11/25/21 History [Tylenol PM 500-25mg] Allergies Allergy/AdvReac Type Severity Reaction Status Date / Time No Known Allergies Allergy Verified 11/25/21 16:47 Physical Exam Vitals: Vital Signs Temp Pulse Resp BP Pulse Ox 11/25/21 17:04 86.7 F L 80 18 81/30 98 11/25/21 16:54 86.2 F L 80 18 78/43 98 11/25/21 16:33 85.3 F L 75 16 85/46 98 11/25/21 16:11 84.2 F L 69 16 78/42 99 11/25/21 15:55 83.7 F L 66 16 79/37 11/25/21 15:36 84.0 F L 66 18 74/30 100 11/25/21 14:19 32 L 6 L 140/109 85 L Intake and Output 11/25/21 11/25/21 11/25/21 06:59 14:59 22:59 Intake Total 3.317 Balance 3.317 Intake: Intake, IV Titration 3.317 Amount Norepinephrine 32 mg In 3.317 Sodium Chloride 0.9% 218 ml @ 0.05 MCG/KG/MIN 1. 701 mls/hr IV .Q24H ONE Rx#:[id number] Other: Weight 72.575 kg Limitations: Intubated and mechanically ventilated General appearance: Sedated Head exam: Present: atraumatic Eye exam: Present: scleral icterus, other (Pupils dilated and sluggish) Neck exam: Absent: tenderness Respiratory exam: Present: normal lung sounds bilaterally Cardiovascular Exam: Present: bradycardia GI/Abdominal exam: Present: soft. Absent: tenderness Extremities exam: Present: normal inspection Neurological exam: Unable to examine Psychiatric exam: Present: other (Nonverbal) Skin exam: Present: other (Jaundice) Results CBC & Chem 7: 11/25/21 15:01 11/25/21 16:32 Labs: Abnormal Lab Results - Last 24 Hours (Table) 11/25/21 11/25/21 11/25/21 Range/Units 15:01 15:01 15:01 WBC 19.2 H (3.8-10.6) k/uL RBC 3.17 L (4.30-5.90) m/uL Hgb 11.4 L (13.0-17.5) gm/dL Hct 36.2 L (39.0-53.0) % MCV 114.4 H (80.0-100.0) fL MCH 35.9 H (25.0-35.0) pg Neutrophils # 13.0 H (1.3-7.7) k/uL Macrocytosis Marked A PT 34.7 H (9.0-12.0) sec INR 3.6 H (<1.2) APTT 118.5 H* (22.0-30.0) sec ABG pH (7.35-7.45) ABG pO2 (83-108) mmHg ABG HCO3 (21-25) mmol/L ABG Total CO2 (19-24) mmol/L ABG O2 Saturation (94-97) % Sodium (137-145) mmol/L Potassium (3.5-5.1) mmol/L Chloride (98-107) mmol/L Carbon Dioxide (22-30) mmol/L BUN (9-20) mg/dL Creatinine (0.66-1.25) mg/dL Glucose (74-99) mg/dL POC Glucose (mg/dL) (75-99) mg/dL Plasma Lactic Acid Kvng (0.7-2.0) mmol/L Calcium (8.4-10.2) mg/dL Total Bilirubin (0.2-1.3) mg/dL AST (17-59) U/L ALT (4-49) U/L Alkaline Phosphatase (38-126) U/L Ammonia (<30) umol/L Creatine Kinase (55-170) U/L Total Protein (6.3-8.2) g/dL Albumin (3.5-5.0) g/dL Urine Protein 1+ H (Negative) Urine Bilirubin 4+ H (Negative) Amorphous Sediment Rare H (None) /hpf Urine Bacteria Many H (None) /hpf Urine Mucus Few H (None) /hpf 11/25/21 11/25/21 11/25/21 Range/Units 15:01 15:01 16:00 WBC (3.8-10.6) k/uL RBC (4.30-5.90) m/uL Hgb (13.0-17.5) gm/dL Hct (39.0-53.0) % MCV (80.0-100.0) fL MCH (25.0-35.0) pg Neutrophils # (1.3-7.7) k/uL Macrocytosis PT (9.0-12.0) sec INR (<1.2) APTT (22.0-30.0) sec ABG pH 6.89 L* (7.35-7.45) ABG pO2 >400 H (83-108) mmHg ABG HCO3 7 L* (21-25) mmol/L ABG Total CO2 9 L (19-24) mmol/L ABG O2 Saturation 99.7 H (94-97) % Sodium 103 L* (137-145) mmol/L Potassium 6.0 H (3.5-5.1) mmol/L Chloride 74 L* (98-107) mmol/L Carbon Dioxide 10 L (22-30) mmol/L BUN 7 L (9-20) mg/dL Creatinine 1.55 H (0.66-1.25) mg/dL Glucose 38 L* (74-99) mg/dL POC Glucose (mg/dL) (75-99) mg/dL Plasma Lactic Acid Kvng 15.1 H* (0.7-2.0) mmol/L Calcium 7.0 L (8.4-10.2) mg/dL Total Bilirubin 16.4 H* (0.2-1.3) mg/dL AST 714 H (17-59) U/L ALT 102 H (4-49) U/L Alkaline Phosphatase 151 H (38-126) U/L Ammonia 265 H (<30) umol/L Creatine Kinase 90112 H* (55-170) U/L Total Protein 5.8 L (6.3-8.2) g/dL Albumin 2.4 L (3.5-5.0) g/dL Urine Protein (Negative) Urine Bilirubin (Negative) Amorphous Sediment (None) /hpf Urine Bacteria (None) /hpf Urine Mucus (None) /hpf 11/25/21 11/25/21 Range/Units 16:16 16:32 WBC (3.8-10.6) k/uL RBC (4.30-5.90) m/uL Hgb (13.0-17.5) gm/dL Hct (39.0-53.0) % MCV (80.0-100.0) fL MCH (25.0-35.0) pg Neutrophils # (1.3-7.7) k/uL Macrocytosis PT (9.0-12.0) sec INR (<1.2) APTT (22.0-30.0) sec ABG pH (7.35-7.45) ABG pO2 (83-108) mmHg ABG HCO3 (21-25) mmol/L ABG Total CO2 (19-24) mmol/L ABG O2 Saturation (94-97) % Sodium 101 L* (137-145) mmol/L Potassium (3.5-5.1) mmol/L Chloride (98-107) mmol/L Carbon Dioxide (22-30) mmol/L BUN (9-20) mg/dL Creatinine (0.66-1.25) mg/dL Glucose (74-99) mg/dL POC Glucose (mg/dL) 201 H (75-99) mg/dL Plasma Lactic Acid Kvng (0.7-2.0) mmol/L Calcium (8.4-10.2) mg/dL Total Bilirubin (0.2-1.3) mg/dL AST (17-59) U/L ALT (4-49) U/L Alkaline Phosphatase (38-126) U/L Ammonia (<30) umol/L Creatine Kinase (55-170) U/L Total Protein (6.3-8.2) g/dL Albumin (3.5-5.0) g/dL Urine Protein (Negative) Urine Bilirubin (Negative) Amorphous Sediment (None) /hpf Urine Bacteria (None) /hpf Urine Mucus (None) /hpf Assessment and Plan Assessment: 1. Septic shock; patient is hypotensive, bradycardic and hypothermic; source of infection is not clear 2. Acute renal failure/rhabdomyolysis 3. Hypotension and bradycardia; related to septic versus hypovolemic shock 4. Hepatic encephalopathy/acute hepatic failure 5. Acute respiratory failure 6. Critical hyponatremia and hyperkalemia 7. Coagulopathy secondary to hepatic failure Plan Patient is intubated and mechanically ventilated; will be admitted to ICU; patient received IV fluid bolus in form of normal saline in ED and has been placed on IV Levophed for hypotension; hypertonic saline at a rate of 25 mL per hour per nephrology recommendations; sodium bicarbonate 50 mils IV 1 started on IV Zosyn and Levaquin for septic shock; blood cultures and urine cultures are obtained and pending; pickling tank operator service for vent management Prognosis is grave
[2021-11-25 20:15] LABS: Glucose,Whole Blood 106 mg/dL (75-99)
[2021-11-25] MEDS ORDERED: CHLORHEXIDINE GLUCONATE 15 ML CUP MUCOUS MEM SCH (21:00)
[2021-11-25] MEDS ORDERED: LACTULOSE 20 GM/30 ML CUP PO SCH (22:00)
[2021-11-25] MEDS ORDERED: EPINEPHrine 10 ML SYRINGE (0.1 MG/ML) ONE (22:21)
[2021-11-25 22:23] LABS: Glucose,Whole Blood 144 mg/dL (75-99)
[2021-11-25 22:36] LABS: HCT 27.4 % (39.0-53.0); MCH 35.1 pg (25.0-35.0); MCHC 32.2 g/dL (31.0-37.0); Macrocytosis Marked; Mean Platelet Volume 9.8; RBC 2.51 m/uL (4.30-5.90); RDW 14.8 % (11.5-15.5)
[2021-11-25 22:42] LABS: HGB 8.8 gm/dL (13.0-17.5); MCV 108.9 fL (80.0-100.0)
[2021-11-25] MEDS: DEXTROSE 5% IN WATER 1,000 ML with SODIUM BICARB (1 MEQ/ML) 150 ML IV SCH (22:46)
[2021-11-25] MEDS: SODIUM CHLORIDE 0.9% 50 ML with VASOPRESSIN 20 UNIT IVPB SCH ×2 (22:46)
[2021-11-25] MEDS ORDERED: EPINEPHrine 4 MG in DEXTROSE 5% IN WATER 250 ML IV SCH ×2 (23:00)
--- NOTE | 2021-11-25 23:12 | P.EN ---
CODE BLUE called at ~9:30p Patient lost pulse and was in PEA, chest compressions started, 1mg epinephrine, 3A bicarb given with ROSC. Total CPR time < 5 minutes. CODE BLUE again at ~ 10:30p Patient lost pulse again and was in VTACH, chest compressions started, 1mg epinephrine, 1A bicarb, 1shock at 200J. Total CPR time < 2 minutes. See separate note for critical care time.
[2021-11-25] MEDS ORDERED: PHYTONADIONE 5 MG in SODIUM CHLORIDE 0.9% 50 ML IVPB ONE (23:15)
[2021-11-25 23:17] LABS: INR 1.5 (<1.2); Prothrombin Time 15.2 sec (9.0-12.0)
[2021-11-25 23:19] LABS: Partial Thromboplastin Time >200.0 sec (22.0-30.0)
[2021-11-25 23:20] LABS: Albumin 1.4 g/dL (3.5-5.0); Bilirubin, Conjugated 5.2 mg/dL (0.0-0.3); Bilirubin,Unconjugated 2.5 mg/dL (0.0-1.1); C Reactive Protein 2.3 mg/dL (<1.0); Magnesium 2.6 mg/dL (1.6-2.3); Total Bilirubin 10.7 mg/dL (0.2-1.3); Total Protein 3.7 g/dL (6.3-8.2)
[2021-11-25] MEDS ORDERED: DEXTROSE 5% IN WATER 100 ML with AMIODARONE 150 MG IV ONE (23:30)
--- NOTE | 2021-11-25 23:31 | P.PN ---
Progress Note - Text Progress Note Date: 11/25/21 I initially responded to a CODE BLUE at approximately 9:30 PM. CPR was initiated, patient received 1 mg of epinephrine, 3 A of bicarb, and had return of spontaneous circulation. I initially did a post code Neurological exam, patient did not withdraw to pain in any 4 extremities. Pupils were fixed and dilated. Blood pressures were in the 60s/30s, heart rates in the 130s, rhythm appear to be atrial tachycardia with left bundle-branch block. At this point, patient's chart was reviewed, and his labs had significant abnormalities including: PH of 6.9, bicarb of 7, sodium of 102, elevated creatinine to 1.55, glucose of 38, total bilirubin of 16.4 with elevated AST/ALT, alk phos, and CK elevation to 25,791. Given patient's critical condition, and significant lab abnormalities, reached out to patient's and have brief conversation with her asking her to come into the hospital to discuss patient's CODE STATUS. However, by the time of arrival, patient's neurological status had improved to the point where he was able to open his eyes on command as well as squeeze his right hand on command. He also appeared to be bucking the vent at this point. Blood pressures returned to 90-100/50-60, heart rates remained elevated in the 130s. I reviewed patient's overall physical condition in the room with the patient's , and noted that he is in critical condition and has very low likelihood of survival, however, admittedly he did improve from when I spoke to her on the phone. In addition, I noted the new finding of bloody gastric output from the OG tube in the background patient's chronic alcohol use, this may represent upper GI bleed in addition to all of his other issues. My opinion was that we could try to resuscitate the patient over 24 hours by giving him blood, IV fluids with bicarb, and maintaining his pressor requirement. However, I told the patient's that if he did not improve in the next 24 hours, it is unlikely that he'll survive, and that we should consider comfort care. Today she was in agreement. In light of the situation as a whole, patient was moved to the intensive care unit. I started a bicarbonate drip, patient received an additional 3 A of bicarb, for a total of 7 between the codes and critical care time. He also received a total of 3 mg of epinephrine. And was started on a vasopressin drip by the ICU physician, then by an epinephrine drip by me. Again, patient is able to follow commands when the blood pressure is adequate, most notably after his pushes of epinephrine. Repeat labs were drawn, most are pending, however, at the time of writing this note, I did see that patient has a 3 point drop in hemoglobin in the background of an elevated INR to 3.4 and an elevated PTT. I additionally ordered vitamin K 5 mg IV, 3 units of packed blood cells, 2 units of FFP. I asked that anesthesia place an A-line. I discussed this case with the ICU physician supervisor smoke control over the phone. I went ahead and placed a surgery consult for endoscopy. He did have a second episode of a CODE BLUE in which she was in ventricular tachycardia, had brief compressions, was shocked one time with return of spontaneous circulation. Amiodarone drip started. In reviewing the chart, patient had an endoscopy in January 2021 and was noted to have antral gastritis without evidence of gastroesophageal varices, and the blood in the gastric output seen appears to be dark and not bright red. I spent a total of 110 minutes of critical care time not including procedures in the care of this patient. CC time: 9:35p to 10:28p, 10:30p to 11:30p Code Blue time: 9:30p to 9:35p, 10:28p to 10:30p
[2021-11-25 23:32] LABS: Potassium 6.8 mmol/L (3.5-5.1)
[2021-11-25] MEDS ORDERED: CALCIUM CHLORIDE 100 MG/ML 10 ML SYRINGE IVP ONE ×2 (23:37)
[2021-11-25] MEDS ORDERED: INSULIN REGULAR 100 UNIT/ML VIAL (IV) IV ONE (23:37)
[2021-11-25] MEDS ORDERED: DEXTROSE 5% IN WATER 250 ML with AMIODARONE 300 MG IV ONE (23:45)
[2021-11-26] MEDS ORDERED: PROTAMINE SULFATE 10 MG/ML 5 ML VIAL IV STA ×3 (00:30→02:58)
[2021-11-26 00:53] LABS: Band Neutrophils % 21 %; Eosinophils # (M) 0.24 k/uL (0-0.7); Lymphocytes # (M) 1.33 k/uL (1.0-4.8); Monocytes # (M) 0.36 k/uL (0-1.0); Neutrophils % (M) 63 %; Nucleated Red Blood Cells 5 /100 WBC (0-0); Total Cells Counted 200; WBC 12.1 k/uL (3.8-10.6)
[2021-11-26 00:54] LABS: Anisocytosis (M) Present; Crenated RBC Present; Poikilocytosis (M) Present
[2021-11-26 00:55] LABS: Platelet Count 92 k/uL (150-450)
[2021-11-26] MEDS: PIPERACILLIN-TAZOBACTAM 3.375 GM in SODIUM CHLORIDE 0.9% 100 ML IVPB SCH (01:03)
[2021-11-26] MEDS: NOREPINEPHRINE 32 MG in SODIUM CHLORIDE 0.9% 218 ML IV ONE (01:06)
[2021-11-26] MEDS ORDERED: SODIUM CHLORIDE 3%(HYPERTONIC) 500 ML IV SCH (01:17)
[2021-11-26 01:34] LABS: VBG PH 7.15 (7.31-7.41)
[2021-11-26 01:54] LABS: Calcium 6.6 mg/dL (8.4-10.2)
[2021-11-26 02:04] LABS: Potassium 6.9 mmol/L (3.5-5.1)
[2021-11-26 02:05] LABS: Magnesium 2.7 mg/dL (1.6-2.3)
[2021-11-26] MEDS: SODIUM CHLORIDE 0.9% 50 ML with VASOPRESSIN 20 UNIT IVPB SCH ×2 (02:42)
[2021-11-26] MEDS ORDERED: CALCIUM CHLORIDE 100 MG/ML 10 ML SYRINGE IVP STA (02:59)
[2021-11-26] MEDS ORDERED: AMIODARONE 360 MG in DEXTROSE 5% IN WATER 200 ML IV ONE ×2 (03:00)
[2021-11-26 03:25] VITALS: TEMP 92.8
[2021-11-26] MEDS ORDERED: AMIODARONE IN DEXTROSE,ISO-OSM 360 MG/200 ML PLAST..BAG IV ONE (03:31)
[2021-11-26] MEDS ORDERED: AMIODARONE IN DEXTROSE,ISO-OSM 150 MG/100 ML PLAST..BAG IV ONE (03:31)
[2021-11-26] MEDS: SODIUM BICARB 8.4% 50 ML SYR (1 MEQ/ML) IV SCH ×2 (04:09→04:31)
[2021-11-26] MEDS: DEXTROSE 5% IN WATER 1,000 ML with SODIUM BICARB (1 MEQ/ML) 150 ML IV SCH (05:21)
[2021-11-26 05:32] VITALS: BP 67/53; PULSE 102; RESP 33
[2021-11-26] MEDS ORDERED: MORPHINE SULFATE 4 MG/ML SYRINGE IV PRN (06:21)
[2021-11-26] MEDS ORDERED: LORazepam 2 MG/ML INJ IV PRN (06:21)
--- NOTE | 2021-11-26 07:26 | XR ---
EXAMINATION TYPE: XR chest 1V portable DATE OF EXAM: 11/26/2021 COMPARISON: Code 2621 HISTORY: SOB, Follow Up FINDINGS: Indwelling tubes and catheters are unchanged. No change in bibasilar opacities. Stable appearance of the cardio-mediastinal structures at this time. IMPRESSION: 1. Stable portable chest. Clinical correlation and follow up until resolution is recommended.
[2021-11-26] MEDS ORDERED: AMIODARONE 450 MG in DEXTROSE 5% IN WATER 250 ML IV SCH ×2 (09:00)
[2021-11-26] MEDS ORDERED: LEVOFLOXACIN 750MG-D5W PMX 750 MG in DEXTROSE/WATER 1 150ML.BAG IVPB SCH (17:00)
== END 2021-11-26 08:25 | disposition expired | DRG 871 ==
LOC: EC 14:18 → 2SICU 16:30
PROVIDERS: ADMIT Internal Medicine; ATTEND Internal Medicine
PROC: 5A1935Z Respiratory Ventilation, Less than 24 Consecutive Hours (ICD-10-PCS; principal; 2021-11-25)
PROC: 0BH17EZ Insertion of Endotracheal Airway into Trachea, Via Natural or Artificial Opening (ICD-10-PCS; 2021-11-25)
PROC: 5A12012 Performance of Cardiac Output, Single, Manual (ICD-10-PCS; 2021-11-25)
PROC: 3E033XZ Introduction of Vasopressor into Peripheral Vein, Percutaneous Approach (ICD-10-PCS; 2021-11-25)
PROC: 02HV33Z Insertion of Infusion Device into Superior Vena Cava, Percutaneous Approach (ICD-10-PCS; 2021-11-25)
PROC: 0D9670Z Drainage of Stomach with Drainage Device, Via Natural or Artificial Opening (ICD-10-PCS; 2021-11-25)
DX: A41.9 Sepsis, unspecified organism (principal); K72.00 Acute and subacute hepatic failure without coma; R65.21 Severe sepsis with septic shock; J96.00 Acute respiratory failure, unspecified whether with hypoxia or hypercapnia; I47.1 Supraventricular tachycardia; D68.9 Coagulation defect, unspecified; I47.2 Ventricular tachycardia; E87.1 Hypo-osmolality and hyponatremia; E87.2 Acidosis; M62.82 Rhabdomyolysis; N17.9 Acute kidney failure, unspecified; K92.2 Gastrointestinal hemorrhage, unspecified; F84.0 Autistic disorder; I46.2 Cardiac arrest due to underlying cardiac condition; R57.8 Other shock; R00.1 Bradycardia, unspecified; R57.1 Hypovolemic shock; T68.XXXA Hypothermia, initial encounter; Z20.822 Contact with and (suspected) exposure to COVID-19; E87.5 Hyperkalemia; F32.A Depression, unspecified; F41.9 Anxiety disorder, unspecified; F90.9 Attention-deficit hyperactivity disorder, unspecified type; G40.909 Epilepsy, unspecified, not intractable, without status epilepticus; I10 Essential (primary) hypertension; I44.7 Left bundle-branch block, unspecified; K29.70 Gastritis, unspecified, without bleeding; Z80.0 Family history of malignant neoplasm of digestive organs; F10.10 Alcohol abuse, uncomplicated; Y90.5 Blood alcohol level of 100-119 mg/100 ml; D64.9 Anemia, unspecified; Z87.19 Personal history of other diseases of the digestive system; Z79.899 Other long term (current) drug therapy; F17.200 Nicotine dependence, unspecified, uncomplicated; F42.9 Obsessive-compulsive disorder, unspecified; M19.90 Unspecified osteoarthritis, unspecified site; G47.30 Sleep apnea, unspecified; M79.606 Pain in leg, unspecified; K08.109 Complete loss of teeth, unspecified cause, unspecified class; K21.9 Gastro-esophageal reflux disease without esophagitis
CPT/HCPCS: 36415; 70450; 71045; 80048; 80053; 80076; 80306; 80320; 81001; 82140; 82271; 82550; 82803; 82805; 83605; 83735; 84295; 84484; 85025; 85610; 85730; 86140; 86850; 86900; 86901; 86920; 87040; 87635; 93005; 94002; 94003; 96374; 96375; 99291